=== PATIENT | female | born 1985 | race Caucasian/White ===

== ENCOUNTER 2017-10-26 18:57 | Emergency (ER) | payer SELFPAY ==
[2017-10-26] MEDS ORDERED: Ondansetron HCl/PF 4 MG/2 ML Vial ONE (19:21)
[2017-10-26 19:43] LABS: #Basophils 0.1 thou/uL (0.0-0.2); #Eosinphils 0.2 thou/uL (0.0-0.7); #Monocytes 0.6 thou/uL (0.11-0.59); #Neutrophils 4.9 thou/uL (1.40-6.50); %Basophils 1.3 % (0.0-1.0); %Eosinophils 2.1 % (0.0-10.0); %Lymphocytes 26.3 % (21.0-51.0); %Monocytes 7.8 % (0.0-10.0); %Neutrophils 62.5 % (42.0-75.0); Hemoglobin 14.4 g/dL (12.0-16.0); Mean Corpuscular Hemoglobin 28.5 pg (27.0-31.0); Mean Corpuscular Volume 83.7 fL (78.0-98.0); Mean Platelet Volume 6.8 fL (7.4-10.4); Platelet Count 324 thou/uL (130-400); RBC Distribution Width 11.6 % (11.5-14.5); Red Blood Cell (RBC) Count 5.07 mill/uL (4.20-5.40); White Blood Cell (WBC) Count 7.8 thou/uL (4.8-10.8)
[2017-10-26 19:58] LABS: ALT (SGPT) 12 U/L (8-55); AST (SGOT) 11 U/L (5-34); Albumin 4.2 g/dL (3.5-5.0); Alkaline Phosphatase 83 U/L (40-150); Anion Gap 14 mmol/L (10-20); BUN (Urea Nitrogen) 13 mg/dL (7.0-18.7); Bilirubin, Total 0.2 mg/dL (0.2-1.2); Calc. Creatinine Clearance 0 mL/min (70-130); Calcium 9.4 mg/dL (7.8-10.44); Carbon Dioxide 28 mmol/L (22-29); Chloride 102 mmol/L (98-107); Estimated GFR-MDRD 90; Glucose 96 mg/dL (70-105); Lipase 20 U/L (8-78); Potassium 4.1 mmol/L (3.5-5.1); Protein, Total 7.2 g/dL (6.0-8.3); Sodium 140 mmol/L (136-145)
[2017-10-26 20:30] LABS: Bilirubin Negative (Negative); Blood, Urine Negative (Negative); Clarity Slightly Cloudy (Clear); Glucose, Urine (Dipstick) Negative (Negative); Leukocyte Trace (Negative); Nitrite Negative (Negative); Protein, Urine (Dipstick) Trace mg/dL (Neg-Trace); Urobilinogen 0.2 mg/dL (0.2-1.0)
[2017-10-26 20:32] LABS: Pregnancy Test - Urine (BHCG) Negative (Negative); Pregu Control Background? CLEAR/WHITE (CLR/WHITE); Pregu Control Bar Appear? YES (CONTROL BAR)
[2017-10-26 20:33] LABS: Bacteria/HPF 2+ HPF (None Seen); WBC/HPF 0-3 HPF (0-3)
== END 2017-10-26 20:52 | disposition home or self-care (01) ==
LOC: SCSER 18:57
DX: R11.2 Nausea with vomiting, unspecified (principal); F17.210 Nicotine dependence, cigarettes, uncomplicated
CPT/HCPCS: 80053; 81003; 81015; 81025; 83690; 85025; 96361; 96374; J2405

== ENCOUNTER 2018-10-09 13:22 | Emergency (ER) | payer SELFPAY ==
[2018-10-09 13:48] LABS: #Basophils 0.1 thou/uL (0.0-0.2); #Eosinphils 0.3 thou/uL (0.0-0.7); #Lymphocytes 2.2 thou/uL (1.20-3.40); #Monocytes 0.6 thou/uL (0.11-0.59); #Neutrophils 5.7 thou/uL (1.40-6.50); %Basophils 0.6 % (0.0-1.0); %Eosinophils 3.7 % (0.0-10.0); %Lymphocytes 25.1 % (21.0-51.0); %Monocytes 6.6 % (0.0-10.0); Hemoglobin 14.6 g/dL (12.0-16.0); Mean Corpuscular HGB CONC 33.4 g/dL (32.0-36.0); Mean Corpuscular Hemoglobin 30.1 pg (27.0-31.0); Mean Corpuscular Volume 90.2 fL (78.0-98.0); Mean Platelet Volume 6.9 fL (7.4-10.4); Platelet Count 366 thou/uL (130-400); RBC Distribution Width 11.9 % (11.5-14.5); Red Blood Cell (RBC) Count 4.85 mill/uL (4.20-5.40); White Blood Cell (WBC) Count 8.9 thou/uL (4.8-10.8)
[2018-10-09 14:00] LABS: BHCG - Serum Negative (NEGATIVE); Pregs Control Background? CLEAR/WHITE (CLR/WHITE); Pregs Control Bar Appear? YES (CONTROL BAR)
[2018-10-09 14:11] LABS: Acetaminophen Less than 6.0 mcg/mL (10.0-30.0); Alcohol Less than 10 mg/dL (Less than 10); Salicylate Less than 8.0 mg/dL (15.0-30.0)
[2018-10-09 14:12] LABS: ALT (SGPT) 18 U/L (8-55); AST (SGOT) 17 U/L (5-34); Albumin 4.1 g/dL (3.5-5.0); Alkaline Phosphatase 92 U/L (40-150); Anion Gap 12 mmol/L (10-20); BUN (Urea Nitrogen) 13 mg/dL (7.0-18.7); Bilirubin, Total 0.3 mg/dL (0.2-1.2); Calc. Creatinine Clearance 0 mL/min (70-130); Calcium 9.4 mg/dL (7.8-10.44); Carbon Dioxide 25 mmol/L (22-29); Chloride 104 mmol/L (98-107); Estimated GFR-MDRD 82; Glucose 96 mg/dL (70-105); Protein, Total 7.1 g/dL (6.0-8.3); Sodium 137 mmol/L (136-145)
[2018-10-09 14:53] LABS: Bilirubin Negative (Negative); Blood, Urine Negative (Negative); Clarity Clear (Clear); Glucose, Urine (Dipstick) Normal (Negative); Leukocyte 75 Leu/uL (Negative); Nitrite Negative (Negative); Protein, Urine (Dipstick) Negative (Neg-Trace); RBC/HPF 0-3 HPF (0-3); Urobilinogen Normal mg/dL (Less than 2); WBC/HPF 0-3 HPF (0-3)
[2018-10-09 14:59] LABS: Bacteria/HPF Rare-Few HPF (None Seen)
[2018-10-09 15:03] LABS: Amphetamine Detected (NotDetected); Barbiturates Screen Not Detected (NotDetected); Benzodiazepine Screen Not Detected (NotDetected); Cocaine Metabolite Screen Not Detected (NotDetected); Medtox Control Line Valid? VALID (VALID); Medtox Reader # READER 4; Methadone Not Detected (NotDetected); Methamphetamine Detected (NotDetected); Opiate Screen Not Detected (NotDetected); Oxycodone Screen Not Detected (NotDetected); Phencyclidine (PCP) Not Detected (NotDetected); THC/Cannabinoid Screen Detected (NotDetected); Tricyclic Screen Not Detected (NotDetected)
== END 2018-10-09 16:59 | disposition home or self-care (01) ==
LOC: ERS 13:22
DX: F31.9 Bipolar disorder, unspecified (principal); F15.10 Other stimulant abuse, uncomplicated; F12.10 Cannabis abuse, uncomplicated; F17.210 Nicotine dependence, cigarettes, uncomplicated
CPT/HCPCS: 36415; 80053; 80306; 80307; 81003; 81015; 84443; 84703; 85025; 99284

== ENCOUNTER 2018-11-13 17:27 | Observation (INO) | payer SELFPAY ==
[2018-11-13 17:57] LABS: #Basophils 0.1 thou/uL (0.0-0.2); #Eosinphils 0.3 thou/uL (0.0-0.7); #Lymphocytes 2.5 thou/uL (1.20-3.40); #Monocytes 0.8 thou/uL (0.11-0.59); #Neutrophils 5.9 thou/uL (1.40-6.50); %Basophils 0.9 % (0.0-1.0); %Eosinophils 3.2 % (0.0-10.0); %Lymphocytes 25.9 % (21.0-51.0); %Monocytes 8.5 % (0.0-10.0); %Neutrophils 61.5 % (42.0-75.0); Hemoglobin 14.2 g/dL (12.0-16.0); Mean Corpuscular HGB CONC 32.8 g/dL (32.0-36.0); Mean Corpuscular Hemoglobin 29.3 pg (27.0-31.0); Mean Corpuscular Volume 89.2 fL (78.0-98.0); Mean Platelet Volume 6.9 fL (7.4-10.4); Platelet Count 422 thou/uL (130-400); RBC Distribution Width 11.9 % (11.5-14.5); Red Blood Cell (RBC) Count 4.85 mill/uL (4.20-5.40); White Blood Cell (WBC) Count 9.6 thou/uL (4.8-10.8)
[2018-11-13 18:06] LABS: Bilirubin Small (Negative); Blood, Urine Large (Negative); Clarity Clear (Clear); Glucose, Urine (Dipstick) Negative (Negative); Leukocyte Negative (Negative); Nitrite Negative (Negative); Protein, Urine (Dipstick) 100 mg/dL (Neg-Trace); Urobilinogen 0.2 mg/dL (Less than 2)
[2018-11-13 18:08] LABS: Pregnancy Test - Urine (BHCG) Negative (Negative); Pregu Control Background? CLEAR/WHITE (CLR/WHITE); Pregu Control Bar Appear? YES (CONTROL BAR); Specific Gravity 1.025 (1.002-1.036)
[2018-11-13 18:13] LABS: RBC/HPF 0-3 HPF (0-3); WBC/HPF 0-3 HPF (0-3)
[2018-11-13 18:14] LABS: Bacteria/HPF Rare-Few HPF (None Seen); Mucous/LPF Few LPF (<2+)
[2018-11-13 18:19] LABS: Amphetamine Detected (NotDetected); Barbiturates Screen Not Detected (NotDetected); Benzodiazepine Screen Not Detected (NotDetected); Cocaine Metabolite Screen Not Detected (NotDetected); Medtox Control Line Valid? VALID (VALID); Medtox Reader # READER 1; Methadone Not Detected (NotDetected); Methamphetamine Detected (NotDetected); Opiate Screen Not Detected (NotDetected); Oxycodone Screen Not Detected (NotDetected); Phencyclidine (PCP) Not Detected (NotDetected); THC/Cannabinoid Screen Detected (NotDetected); Tricyclic Screen Not Detected (NotDetected)
[2018-11-13 18:20] LABS: ALT (SGPT) 13 U/L (8-55); AST (SGOT) 18 U/L (5-34); Acetaminophen Less than 6.0 mcg/mL (10.0-30.0); Albumin 4.4 g/dL (3.5-5.0); Alcohol Less than 10 mg/dL (Less than 10); Alkaline Phosphatase 94 U/L (40-150); Anion Gap 15 mmol/L (10-20); BUN (Urea Nitrogen) 17 mg/dL (7.0-18.7); Bilirubin, Total 0.4 mg/dL (0.2-1.2); Calc. Creatinine Clearance 0 mL/min (70-130); Calcium 9.4 mg/dL (7.8-10.44); Carbon Dioxide 21 mmol/L (22-29); Chloride 107 mmol/L (98-107); Estimated GFR-MDRD 79; Globulin 2.9 g/dL (2.4-3.5); Glucose 79 mg/dL (70-105); Potassium 3.9 mmol/L (3.5-5.1); Protein, Total 7.3 g/dL (6.0-8.3); Salicylate Less than 8.0 mg/dL (15.0-30.0); Sodium 139 mmol/L (136-145)
[2018-11-13] MEDS ORDERED: Lorazepam 2 MG/ML VIAL ONE (19:48)
[2018-11-13] MEDS ORDERED: Acetaminophen 325 MG TAB PO PRN (21:18)
[2018-11-13] MEDS ORDERED: Acetaminophen 650 MG Suppository PR PRN (21:18)
[2018-11-13] MEDS ORDERED: Ondansetron ODT 4 MG TAB PO PRN (21:18)
[2018-11-13] MEDS ORDERED: Ondansetron PF 4 MG/2 ML Vial IVP PRN (21:18)
[2018-11-13] MEDS ORDERED: Sodium Chloride 0.9% 1,000 ML IV SCH (21:30)
[2018-11-14 00:47] LABS: Acetaminophen Less than 6.0 mcg/mL (10.0-30.0)
--- NOTE | 2018-11-14 04:13 | HP ---
PRIMARY CARE DOCTOR: The patient has no PCP. CODE STATUS: Full code. TIME OF EVALUATION: 8:30 p.m. CHIEF COMPLAINT: Overdose with tramadol. HISTORY OF PRESENT ILLNESS: A 32-year-old female patient, came to the hospital after having a drug overdose of tramadol around 4 p.m. The patient reported that she had some arguments and was having some headache and just took a hand full of pills, 15 pills totally of tramadol 50 mg each and took them. The patient has a long history of drug abuse. The patient had methamphetamines. She reportedly was not willing to kill herself, but just to get relief of her pain. REVIEW OF SYSTEMS: All other systems were reviewed and negative except for the findings mentioned above. PAST MEDICAL HISTORY: No significant medical history. PAST SURGICAL HISTORY: No surgical history. FAMILY HISTORY: Reviewed and non contributory for current presentations PSYCHIATRIC HISTORY: The patient has anxiety, bipolar disorder, depression. SOCIAL HISTORY: No alcohol, no drugs. The patient abused marijuana, methamphetamines. Smoke cigarettes 1 pack per day. KNOWN ALLERGIES: No known drug allergies except for red dye. REPORTED MEDICATIONS: None. PHYSICAL EXAMINATION: VITAL SIGNS: On presentation, blood pressure 115/88 with heart rate 91, respiratory rate was 16, pain was 0/10, oxygen saturation was 96% on room air. GENERAL APPEARANCE: The patient is alert, oriented, in no acute distress. HEENT : Eyes, normal conjunctivae. Moist oral mucosa. Anicteric. No JVD. RESPIRATORY: Bilateral air entry. No rales. No wheezes. Symmetric expansion. CARDIOVASCULAR: Normal rate. Regular rhythm. No murmurs. No gallop. No edema. ABDOMEN: Soft. Normal bowel sounds. MUSCULOSKELETAL: Baseline range of motion and strength. SKIN: Warm, intact. No pallor. No rash. No redness. Capillary refill seems to be intact. NEUROLOGIC: No evidence of any new focal weakness. Cranial nerves seems to be intact. PSYCHIATRIC: The patient is in good mood. No anxiety. The patient has no suicidal ideation by the time of my examination. DIAGNOSTIC STUDIES: EKG was reviewed. The patient has normal sinus rhythm with sinus arrhythmia at the rate of 71, AR 140, QRS 72, QT corrected 121. LABORATORY DATA: Labs were reviewed. The patient has white count 9.6, hemoglobin 14.2, MCV 89.2, platelet count 422. Chemistry; sodium 139, potassium 3.9, chloride 107, carbon dioxide 21, anion gap 15, BUN 17, creatinine 0.85, GFR 79, glucose 79, calcium 9.4, magnesium 2.0. LFTs were negative. Urine was done, it was negative. The urine drug screen showed acetaminophen of 6, amphetamines detected, methamphetamine detected, cannabinoids detected. ASSESSMENT AND PLAN: The patient will be placed in the hospital with following medical problems: 1. Overdose with tramadol. We will monitor patient. She seems to be stable at this point. We will give hydration. 2. History of drug abuse. The patient advised not to use drugs. 3. Deep venous thrombosis prophylaxis. 4. The patient is not suicidal during my examination. Job ID: [id number] [facility]
[2018-11-14 04:42] LABS: #Basophils 0.1 thou/uL (0.0-0.2); #Eosinphils 0.3 thou/uL (0.0-0.7); #Lymphocytes 2.6 thou/uL (1.20-3.40); #Monocytes 0.5 thou/uL (0.11-0.59); #Neutrophils 2.9 thou/uL (1.40-6.50); %Basophils 0.9 % (0.0-1.0); %Eosinophils 4.6 % (0.0-10.0); %Lymphocytes 40.7 % (21.0-51.0); %Monocytes 7.7 % (0.0-10.0); Hemoglobin 12.8 g/dL (12.0-16.0); Mean Corpuscular HGB CONC 33.4 g/dL (32.0-36.0); Mean Corpuscular Hemoglobin 30.1 pg (27.0-31.0); Mean Corpuscular Volume 90.2 fL (78.0-98.0); Mean Platelet Volume 4.9 fL (7.4-10.4); Platelet Count 307 thou/uL (130-400); RBC Distribution Width 11.8 % (11.5-14.5); Red Blood Cell (RBC) Count 4.26 mill/uL (4.20-5.40); White Blood Cell (WBC) Count 6.3 thou/uL (4.8-10.8)
[2018-11-14 05:02] LABS: Anion Gap 10 mmol/L (10-20); BUN (Urea Nitrogen) 13 mg/dL (7.0-18.7); Calc. Creatinine Clearance 0 mL/min (70-130); Calcium 8.4 mg/dL (7.8-10.44); Carbon Dioxide 23 mmol/L (22-29); Chloride 109 mmol/L (98-107); Estimated GFR-MDRD Greater than 90; Glucose 82 mg/dL (70-105); Potassium 3.9 mmol/L (3.5-5.1); Sodium 138 mmol/L (136-145)
[2018-11-14] MEDS ORDERED: Enoxaparin Sodium 40 MG/0.4 ML SYRINGE SC SCH (09:00)
[2018-11-14 09:21] VITALS: BMI 26.6
--- NOTE | 2018-11-15 03:45 | DIS ---
DATE OF ADMISSION: 11/13/2018 DATE OF DISCHARGE: 11/14/2018 PRIMARY CARE PROVIDER: None. DISCHARGE DIAGNOSIS: Overdose with tramadol. CONDITION OF PATIENT ON THE DAY OF DISCHARGE: Stable. I assessed Ms. León on the day of discharge. She denies any chest pain or shortness of breath. Vital signs are stable. S1 and S2 are heard, regular. Lungs are clear to auscultation bilaterally. FOLLOWUP APPOINTMENTS: The patient is advised to follow up with primary care provider in 10 days time. HOSPITAL COURSE: Ms. León is a pleasant 32-year-old lady, who was admitted to [facility] on November 13, 2018, for overdose with tramadol. Please refer to Dr. Melchor's history and physical note dated November 14, 2018, for further details. She was observed for signs of tramadol toxicity. She has been medically cleared for discharge. She has been evaluated by [facility] and has been recommended inpatient admission to a psychiatric facility for possible suicidal ideation and depression. She is being discharged to [facility] when bed is available. DISCHARGE DESTINATION: [facility]. Job ID: [id number]
--- NOTE | 2018-11-19 15:35 | EKG ---
Test Reason : Blood Pressure : / mmHG Vent. Rate : 066 BPM Atrial Rate : 066 BPM P-R Int : 152 ms QRS Dur : 070 ms QT Int : 406 ms P-R-T Axes : 048 054 053 degrees QTc Int : 425 ms Normal sinus rhythm Normal ECG Confirmed by PEGGY LUDWIG ([id number]), ms sql server developer CHRISTINA IRVIN ([id number]) on 11/19/2018 3:35:34 PM Referred By: Confirmed By:PEGGY LUDWIG
--- NOTE | 2018-11-19 15:56 | EKG ---
Test Reason : Blood Pressure : / mmHG Vent. Rate : 071 BPM Atrial Rate : 071 BPM P-R Int : 140 ms QRS Dur : 072 ms QT Int : 388 ms P-R-T Axes : 048 058 049 degrees QTc Int : 421 ms Normal sinus rhythm with sinus arrhythmia Normal ECG Confirmed by KAN PEREZ ([id number]), editor continuity and script CHRISTINA IRVIN ([id number]) on 11/19/2018 3:55:54 PM Referred By: Confirmed By:KAN PEREZ
== END 2018-11-14 13:41 ==
LOC: ERS 17:27 → ERHOLD 20:50
PROVIDERS: ADMIT Hospitalist; ATTEND Hospitalist
DX: T40.4X1A Poisoning by other synthetic narcotics, accidental (unintentional), initial encounter (principal); F31.9 Bipolar disorder, unspecified; F41.9 Anxiety disorder, unspecified; F17.210 Nicotine dependence, cigarettes, uncomplicated; F12.11 Cannabis abuse, in remission; F15.11 Other stimulant abuse, in remission; Z91.02 Food additives allergy status
CPT/HCPCS: 36415; 80048; 80053; 80306; 80307; 81003; 81015; 81025; 83735; 84443; 85025; 93005; 96361; 96374; J2060

== ENCOUNTER 2020-03-10 03:21 | Emergency (ER) | payer SELFPAY ==
[2020-03-10 08:22] LABS: SARS-CoV-2 MS2 Positive; SARS-CoV-2 N Gene Negative; SARS-CoV-2 S Gene Negative; SARS-CoV-2 by NAA Not Detected (NotDetected); SARS-CoV-2 orf1ab Negative
== END 2020-03-10 03:55 | disposition home or self-care (01) ==
LOC: ERS 03:21
DX: J02.9 Acute pharyngitis, unspecified (principal); R05 Cough; Z20.822 Contact with and (suspected) exposure to COVID-19; F17.210 Nicotine dependence, cigarettes, uncomplicated
CPT/HCPCS: 87635; 99283; U0003

== ENCOUNTER 2020-10-22 03:02 | Inpatient (IN) | payer MEDICAID, OTHER, SELFPAY ==
[2020-10-22] MEDS ORDERED: Fentanyl 100 MCG/2 ML VIAL ONE ×3 (03:12→16:03)
[2020-10-22 03:41] LABS: #Basophils 0.1 thou/uL (0.0-0.2); #Eosinphils 0.1 thou/uL (0.0-0.7); #Lymphocytes 2.6 thou/uL (1.20-3.40); #Monocytes 0.9 thou/uL (0.11-0.59); #Neutrophils 13.4 thou/uL (1.40-6.50); %Basophils 0.4 % (0.0-1.0); %Eosinophils 0.8 % (0.0-10.0); %Lymphocytes 15.1 % (21.0-51.0); %Monocytes 5.3 % (0.0-10.0); %Neutrophils 78.5 % (42.0-75.0); Hemoglobin 12.9 g/dL (12.0-16.0); Mean Corpuscular HGB CONC 34.3 g/dL (32.0-36.0); Mean Corpuscular Hemoglobin 29.6 pg (27.0-31.0); Mean Corpuscular Volume 86.4 fL (78.0-98.0); Mean Platelet Volume 6.8 fL (7.4-10.4); Platelet Count 473 thou/uL (130-400); RBC Distribution Width 12.3 % (11.5-14.5); Red Blood Cell (RBC) Count 4.35 mill/uL (4.20-5.40); White Blood Cell (WBC) Count 17.1 thou/uL (4.8-10.8)
[2020-10-22 03:48] LABS: BHCG - Serum Negative (NEGATIVE); Pregs Control Background? CLEAR/WHITE (CLR/WHITE); Pregs Control Bar Appear? YES (CONTROL BAR)
[2020-10-22] MEDS ORDERED: Morphine 4 MG/ML VIAL ONE ×2 (03:49→04:40)
[2020-10-22] MEDS ORDERED: Ondansetron PF 4 MG/2 ML Vial ONE ×3 (03:49→15:50)
[2020-10-22] MEDS ORDERED: PROPOFOL 20 ML ONE (03:59)
[2020-10-22 04:01] LABS: Acetaminophen Less than 6.0 mcg/mL (10.0-30.0); Alcohol Less than 10 mg/dL (Less than 10); Salicylate Less than 8.0 mg/dL (15.0-30.0)
[2020-10-22 04:02] LABS: ALT (SGPT) 18 U/L (8-55); AST (SGOT) 26 U/L (5-34); Alkaline Phosphatase 93 U/L (40-110); Anion Gap 14 mmol/L (10-20); BUN (Urea Nitrogen) 18 mg/dL (7.0-18.7); Bilirubin, Total 0.2 mg/dL (0.2-1.2); Calc. Creatinine Clearance 0 mL/min (70-130); Calcium 8.6 mg/dL (7.8-10.44); Carbon Dioxide 19 mmol/L (22-29); Chloride 107 mmol/L (98-107); Globulin 3.2 g/dL (2.4-3.5); Glucose 147 mg/dL (70-105); Potassium 3.9 mmol/L (3.5-5.1); Protein, Total 7.2 g/dL (6.0-8.3); Sodium 136 mmol/L (136-145)
[2020-10-22] MEDS ORDERED: Morphine 2 MG/ML VIAL ONE ×2 (05:29→09:51)
[2020-10-22] MEDS ORDERED: Ketorolac Tromethamine 30 MG/ML VIAL ONE ×2 (05:29→15:50)
[2020-10-22] MEDS ORDERED: Boostrix 0.5 ML (Tdap) VIAL ONE (05:34)
[2020-10-22] MEDS ORDERED: Dextrose 5% in Water 1,000 ML IV PRN (06:06)
[2020-10-22] MEDS ORDERED: Dextrose 50% Abboject 50 ML SYRINGE SLOW IVP PRN (06:06)
[2020-10-22] MEDS ORDERED: Ondansetron PF 4 MG/2 ML Vial IVP PRN (06:06)
[2020-10-22] MEDS ORDERED: hydrALAZINE 20 MG/ML VIAL SLOW IVP PRN (06:06)
[2020-10-22] MEDS ORDERED: Cyclobenzaprine 10 MG TAB PO PRN (06:11)
[2020-10-22] MEDS ORDERED: traMADol HCl 50 MG TAB PO PRN (06:11)
[2020-10-22] MEDS ORDERED: Sodium Chloride 0.9% 1,000 ML IV SCH (06:15)
[2020-10-22] MEDS ORDERED: Iopamidol-370 76% 500 ML 1 ML ONE (09:12)
[2020-10-22 09:35] LABS: SARS-CoV-2 NAA Rapid Test DETECTED (NotDetected)
[2020-10-22] MEDS ORDERED: CEFAZOLIN 2 GM in Premix Bag 1 BAG IVPB SCH (11:00)
[2020-10-22] MEDS ORDERED: Fentanyl 250 MCG/5 ML VIAL ONE (12:44)
[2020-10-22] MEDS ORDERED: PROPOFOL 200 MG/20 ML VIAL ONE (13:31)
[2020-10-22] MEDS ORDERED: Dexamethasone 20 MG/5 ML VIAL ONE (13:31)
[2020-10-22] MEDS ORDERED: Lidocaine 1% PF 5 ML VIAL ONE (13:31)
[2020-10-22] MEDS ORDERED: Ondansetron HCl/PF 4 MG/2 ML Vial IVP PRN (15:46)
[2020-10-22] MEDS ORDERED: Promethazine HCl 25 MG/ML VIAL IM PRN (15:46)
[2020-10-22] MEDS ORDERED: Promethazine HCl 25 MG/ML VIAL IVPB PRN (15:46)
[2020-10-22] MEDS ORDERED: Meperidine HCl/PF 25 MG/ML VIAL SLOW IVP PRN ×2 (15:46)
[2020-10-22] MEDS ORDERED: HYDROmorphone 2 MG/ML VIAL SLOW IVP PRN (15:46)
[2020-10-22] MEDS ORDERED: Ketorolac Tromethamine 30 MG/ML VIAL IVP PRN (15:46)
[2020-10-22] MEDS ORDERED: Morphine Sulfate 2 MG/ML SYRINGE SLOW IVP PRN (15:46)
[2020-10-22] MEDS ORDERED: Meperidine HCl/PF 25 MG/ML VIAL ONE (15:50)
[2020-10-22] MEDS ORDERED: HYDROmorphone 2 MG/ML VIAL ONE (16:03)
[2020-10-22] MEDS: traMADol HCl 50 MG TAB PO SCH ×3 (18:56→22:19)
[2020-10-22] MEDS: Acetaminophen 500 MG TAB PO SCH ×3 (18:56→22:19)
[2020-10-22] MEDS: Famotidine 20 MG TAB PO SCH ×2 (18:57→19:49)
[2020-10-22] MEDS: Bacitracin 1 PK TOP SCH ×2 (18:57→19:49)
[2020-10-22] MEDS: Nicotine 14 MG PATCH TD SCH (18:57)
[2020-10-22] MEDS: Polyethylene Glycol 3350 17 GM Packet PO SCH (18:57)
[2020-10-22] MEDS: Ketorolac Tromethamine 30 MG/ML VIAL IVP SCH ×3 (18:57→22:18)
[2020-10-22] MEDS: Senokot S 8.6-50 MG TAB PO SCH ×2 (18:57→19:49)
[2020-10-22] MEDS: Ferrous Sulfate 325 MG TAB PO SCH (18:58)
[2020-10-22] MEDS: Morphine 2 MG/ML VIAL SLOW IVP PRN (21:00)
[2020-10-22] MEDS: CEFAZOLIN 2 GM in Premix Bag 1 BAG IVPB SCH (21:39)
[2020-10-22 21:52] VITALS: BMI 24.8
[2020-10-23] MEDS: Morphine 2 MG/ML VIAL SLOW IVP PRN ×2 (00:55→08:25)
[2020-10-23] MEDS: Acetaminophen 500 MG TAB PO SCH ×4 (04:27→23:08)
[2020-10-23] MEDS: traMADol HCl 50 MG TAB PO SCH ×4 (04:28→23:09)
[2020-10-23] MEDS: CEFAZOLIN 2 GM in Premix Bag 1 BAG IVPB SCH ×3 (04:55→23:05)
[2020-10-23] MEDS: Ketorolac Tromethamine 30 MG/ML VIAL IVP SCH ×4 (04:55→23:06)
[2020-10-23] MEDS: Ferrous Sulfate 325 MG TAB PO SCH ×3 (08:22→20:50)
[2020-10-23] MEDS: Ascorbic Acid 500 mg Chewable Tablet PO SCH ×2 (08:24→20:50)
[2020-10-23] MEDS: Enoxaparin Sodium 40 MG/0.4 ML SYRINGE SC SCH (08:24)
[2020-10-23] MEDS: Famotidine 20 MG TAB PO SCH ×2 (08:24→20:50)
[2020-10-23] MEDS: Polyethylene Glycol 3350 17 GM Packet PO SCH (08:24)
[2020-10-23] MEDS: Prenatal Vitamin 1 TAB PO SCH (08:24)
[2020-10-23] MEDS: Senokot S 8.6-50 MG TAB PO SCH ×2 (08:24→20:49)
[2020-10-23] MEDS: Bacitracin 1 PK TOP SCH ×3 (08:25→20:49)
[2020-10-23] MEDS: Nicotine 14 MG PATCH TD SCH (11:40)
[2020-10-24] MEDS: Ketorolac Tromethamine 30 MG/ML VIAL IVP SCH ×2 (05:27→11:57)
[2020-10-24] MEDS: Acetaminophen 500 MG TAB PO SCH ×2 (05:28→12:25)
[2020-10-24] MEDS: traMADol HCl 50 MG TAB PO SCH ×2 (05:28→11:58)
[2020-10-24] MEDS: Polyethylene Glycol 3350 17 GM Packet PO SCH (08:23)
[2020-10-24] MEDS: Prenatal Vitamin 1 TAB PO SCH (08:23)
[2020-10-24] MEDS: Bacitracin 1 PK TOP SCH (08:23)
[2020-10-24] MEDS: Famotidine 20 MG TAB PO SCH (08:23)
[2020-10-24] MEDS: Ascorbic Acid 500 mg Chewable Tablet PO SCH (08:23)
[2020-10-24] MEDS: Ferrous Sulfate 325 MG TAB PO SCH (08:23)
[2020-10-24] MEDS: Senokot S 8.6-50 MG TAB PO SCH (08:23)
[2020-10-24] MEDS: Enoxaparin Sodium 40 MG/0.4 ML SYRINGE SC SCH (08:23)
[2020-10-24] MEDS: Nicotine 14 MG PATCH TD SCH (08:38)
[2020-10-24 11:58] VITALS: BP 105/71; TEMP 98.2
== END 2020-10-24 13:50 | disposition home or self-care (01) | DRG 492 ==
LOC: ERS 03:02 → ERHOLD 04:04 → SURG A 11:28 → T4-A 18:18
PROVIDERS: ADMIT Surgery; ATTEND Surgery
PROC: 0QSG04Z Reposition Right Tibia with Internal Fixation Device, Open Approach (ICD-10-PCS; principal; 2020-10-22)
DX: S82.851B Displaced trimalleolar fracture of right lower leg, initial encounter for open fracture type I or II (principal); U07.1 COVID-19; S40.811A Abrasion of right upper arm, initial encounter; V89.2XXA Person injured in unspecified motor-vehicle accident, traffic, initial encounter; Y92.89 Other specified places as the place of occurrence of the external cause
CPT/HCPCS: 27818; 36416; 70450; 71045; 71260; 72125; 74177; 76000; 80053; 80307; 84703; 85025; 86850; 86900; 86901; 90471; 90715; 96374; 96375; 96376; 99152; C1713; G0390; J0690; J1100; J1170; J1650; J1885; J2175; J2270; J2405; J2704; J3010; Q9967; U0002; U0005

== ENCOUNTER 2020-11-19 18:01 | Emergency (ER) | payer SELFPAY ==
[2020-11-19] MEDS ORDERED: HYDROcodone/Acetaminophen 10/325 mg Tablet ONE (19:54)
== END 2020-11-19 22:40 | disposition home or self-care (01) ==
LOC: ERS 18:01
DX: S92.321A Displaced fracture of second metatarsal bone, right foot, initial encounter for closed fracture (principal); S92.331A Displaced fracture of third metatarsal bone, right foot, initial encounter for closed fracture; S92.341A Displaced fracture of fourth metatarsal bone, right foot, initial encounter for closed fracture; F17.200 Nicotine dependence, unspecified, uncomplicated; X58.XXXA Exposure to other specified factors, initial encounter
CPT/HCPCS: 29515

== ENCOUNTER 2020-11-26 10:51 | Outpatient (CLI) | payer SELFPAY ==
[2020-11-26 23:09] LABS: SARS-CoV-2 PCR by NAA Not Detected (NotDetected)
== END 2020-11-26 10:52 | disposition home or self-care (01) ==
LOC: LABBT 10:51
PROVIDERS: ATTEND Orthopaedic Surgery
DX: Z01.812 Encounter for preprocedural laboratory examination (principal); S93.431A Sprain of tibiofibular ligament of right ankle, initial encounter; S92.901A Unspecified fracture of right foot, initial encounter for closed fracture; Z20.822 Contact with and (suspected) exposure to COVID-19
CPT/HCPCS: U0003; U0005

== ENCOUNTER 2020-11-29 06:10 | Day surgery (SDC) | payer OTHER, SELFPAY ==
[2020-11-27 11:12] VITALS: BMI 31.3
[2020-11-29] MEDS ORDERED: Levofloxacin 500 mg/D5W 100 ml Premix Bag ONE (06:33)
[2020-11-29] MEDS ORDERED: Clindamycin/D5W 900 mg/50 ml Premix Bag ONE (06:33)
[2020-11-29] MEDS ORDERED: Fentanyl 100 MCG/2 ML VIAL ONE ×3 (07:00→09:38)
[2020-11-29] MEDS ORDERED: Midazolam HCl 2 mg/2 ml Vial ONE (07:00)
[2020-11-29] MEDS ORDERED: Famotidine/PF 20 mg/2ml Vial ONE (07:01)
[2020-11-29] MEDS ORDERED: Lidocaine 1% (PF) 30 ML VIAL ONE (07:01)
[2020-11-29] MEDS ORDERED: Lidocaine 1% PF 5 ML VIAL ONE (07:48)
[2020-11-29] MEDS ORDERED: Bupivacaine PF 0.5% 30 ML VIAL ONE (07:48)
[2020-11-29] MEDS ORDERED: Ropivacaine 0.5% HCl/PF (150 MG/30 ML VIAL) ONE (07:48)
[2020-11-29] MEDS ORDERED: Glycopyrrolate 0.2 MG/ML 5 ML SYRINGE ONE (07:48)
[2020-11-29] MEDS ORDERED: Dexamethasone 20 MG/5 ML VIAL ONE (07:48)
[2020-11-29] MEDS ORDERED: Ondansetron PF 4 MG/2 ML Vial ONE (07:48)
[2020-11-29] MEDS ORDERED: PROPOFOL 200 MG/20 ML VIAL ONE (07:48)
[2020-11-29] MEDS ORDERED: Rocuronium Bromide 10 MG/ML (10ML VIAL) ONE (07:48)
[2020-11-29] MEDS ORDERED: Fentanyl 100 MCG/2 ML VIAL SLOW IVP PRN (08:06)
[2020-11-29] MEDS ORDERED: Promethazine HCl 25 MG/ML VIAL IM PRN (08:15)
[2020-11-29] MEDS ORDERED: Ondansetron PF 4 MG/2 ML Vial IVP PRN (08:15)
[2020-11-29] MEDS ORDERED: HYDROcodone/Acetaminophen 10/325 mg Tablet PO PRN ×2 (08:15)
[2020-11-29] MEDS ORDERED: Zolpidem Tartrate 5 MG TAB PO PRN (08:15)
[2020-11-29] MEDS ORDERED: traMADol HCl 50 MG TAB PO PRN ×2 (08:15)
[2020-11-29] MEDS ORDERED: Ropivacaine 0.2% 550 ML 550 ML NERVE BLCK SCH (08:15)
[2020-11-29] MEDS ORDERED: Promethazine HCl 25 MG/ML VIAL ONE (11:00)
== END 2020-11-29 13:53 | disposition home or self-care (01) ==
LOC: SDC 06:10
PROVIDERS: ATTEND Orthopaedic Surgery
PROC: 0QSP04Z Reposition Left Metatarsal with Internal Fixation Device, Open Approach (ICD-10-PCS; principal; 2020-11-29)
PROC: 0SSF04Z Reposition Right Ankle Joint with Internal Fixation Device, Open Approach (ICD-10-PCS; 2020-11-29)
DX: S93.324A Dislocation of tarsometatarsal joint of right foot, initial encounter (principal); S93.431A Sprain of tibiofibular ligament of right ankle, initial encounter; Z88.1 Allergy status to other antibiotic agents; Z88.8 Allergy status to other drugs, medicaments and biological substances; W18.30XA Fall on same level, unspecified, initial encounter
CPT/HCPCS: 76000; A4306; C1713; J1956; J2001; J2250; J2550; J2795; J3010; J3490; S0028

== ENCOUNTER 2020-12-06 09:25 | Inpatient (IN) | payer SELFPAY ==
[2020-12-06] MEDS ORDERED: Piperacillin/Tazobactam 3.375 GM VIAL ONE (09:56)
[2020-12-06] MEDS ORDERED: Sodium Chloride 0.9% 100 ML ONE (09:57)
[2020-12-06 10:30] LABS: #Eosinphils 0.3 thou/uL (0.0-0.7); #Lymphocytes 1.1 thou/uL (1.20-3.40); #Neutrophils 9.4 thou/uL (1.40-6.50); %Basophils 0.3 % (0.0-1.0); %Eosinophils 2.4 % (0.0-10.0); %Lymphocytes 9.6 % (21.0-51.0); %Monocytes 8.5 % (0.0-10.0); %Neutrophils 79.3 % (42.0-75.0); Hemoglobin 10.5 g/dL (12.0-16.0); Mean Corpuscular HGB CONC 31.7 g/dL (32.0-36.0); Mean Corpuscular Hemoglobin 27.2 pg (27.0-31.0); Mean Corpuscular Volume 85.6 fL (78.0-98.0); Mean Platelet Volume 7.8 fL (7.4-10.4); Platelet Count 351 thou/uL (130-400); RBC Distribution Width 13.6 % (11.5-14.5); Red Blood Cell (RBC) Count 3.85 mill/uL (4.20-5.40); White Blood Cell (WBC) Count 11.8 thou/uL (4.8-10.8)
[2020-12-06 10:31] LABS: BHCG - Serum Negative (NEGATIVE); Pregs Control Background? CLEAR/WHITE (CLR/WHITE); Pregs Control Bar Appear? YES (CONTROL BAR)
[2020-12-06] MEDS ORDERED: Heparin 1,000 UNITS/ML VIAL ONE (10:44)
[2020-12-06 10:58] LABS: ALT (SGPT) 10 U/L (8-55); AST (SGOT) 10 U/L (5-34); Albumin 3.1 g/dL (3.5-5.0); Alkaline Phosphatase 104 U/L (40-110); Anion Gap 13 mmol/L (10-20); BUN (Urea Nitrogen) 8 mg/dL (7.0-18.7); Bilirubin, Total 0.2 mg/dL (0.2-1.2); Calc. Creatinine Clearance 0 mL/min (70-130); Calcium 8.3 mg/dL (7.8-10.44); Carbon Dioxide 23 mmol/L (22-29); Chloride 108 mmol/L (98-107); Globulin 2.8 g/dL (2.4-3.5); Glucose 90 mg/dL (70-105); Potassium 4.1 mmol/L (3.5-5.1); Protein, Total 5.9 g/dL (6.0-8.3); Sodium 140 mmol/L (136-145)
[2020-12-06] MEDS ORDERED: traMADol HCl 50 MG TAB PO PRN (11:06)
[2020-12-06] MEDS ORDERED: Morphine 4 MG/ML VIAL ONE (11:06)
[2020-12-06] MEDS ORDERED: Communication Order-Pharmacy FS SCH (11:15)
[2020-12-06] MEDS ORDERED: Piperacillin/Tazobactam 3.375 GM in Sodium Chloride 0.9% 100 ML IVPB SCH (11:15)
[2020-12-06] MEDS ORDERED: Vancomycin 1 GM/200 ML BAG ONE (11:50)
[2020-12-06 13:43] VITALS: BMI 31.3
[2020-12-06] MEDS: Nicotine 21 MG PATCH TD SCH (14:57)
[2020-12-06] MEDS ORDERED: Vancomycin 1 GM in Premix Bag 1 BAG IVPB SCH (15:15)
[2020-12-06] MEDS ORDERED: [UNRECOGNIZED DRUG - OTHER] IVPB PRN (15:16)
[2020-12-06] MEDS: traMADol HCl 50 MG TAB PO PRN ×2 (15:43→22:17)
[2020-12-06] MEDS: Piperacillin/Tazobactam 3.375 GM in Sodium Chloride 0.9% 100 ML IVPB SCH ×3 (15:46→23:36)
[2020-12-06] MEDS: Fentanyl 100 MCG/2 ML VIAL SLOW IVP PRN (18:24)
[2020-12-06] MEDS: Famotidine 20 MG TAB PO SCH (20:00)
[2020-12-06] MEDS: Ondansetron PF 4 MG/2 ML Vial IVP PRN (20:00)
[2020-12-06] MEDS ORDERED: Calcium Carbonate 500 MG ChewTAB PO PRN (21:49)
[2020-12-06] MEDS: Acetaminophen 500 MG TAB PO PRN (22:15)
[2020-12-06] MEDS: Vancomycin 1 GM in Premix Bag 1 BAG IVPB SCH (23:36)
[2020-12-07 00:54] LABS: SARS-CoV-2 PCR by NAA Not Detected (NotDetected)
[2020-12-07] MEDS: Piperacillin/Tazobactam 3.375 GM in Sodium Chloride 0.9% 100 ML IVPB SCH ×4 (03:15→23:05)
[2020-12-07 07:53] LABS: #Eosinphils 0.4 thou/uL (0.0-0.7); #Lymphocytes 1.6 thou/uL (1.20-3.40); #Monocytes 0.8 thou/uL (0.11-0.59); #Neutrophils 6.5 thou/uL (1.40-6.50); %Basophils 0.3 % (0.0-1.0); %Lymphocytes 17.1 % (21.0-51.0); %Monocytes 8.8 % (0.0-10.0); %Neutrophils 69.9 % (42.0-75.0); Hemoglobin 9.7 g/dL (12.0-16.0); Mean Corpuscular Hemoglobin 28.5 pg (27.0-31.0); Mean Corpuscular Volume 86.2 fL (78.0-98.0); Mean Platelet Volume 7.5 fL (7.4-10.4); Platelet Count 451 thou/uL (130-400); RBC Distribution Width 13.6 % (11.5-14.5); Red Blood Cell (RBC) Count 3.39 mill/uL (4.20-5.40); White Blood Cell (WBC) Count 9.4 thou/uL (4.8-10.8)
[2020-12-07] MEDS: Famotidine 20 MG TAB PO SCH ×2 (08:11→20:23)
[2020-12-07] MEDS: Vancomycin 1 GM in Premix Bag 1 BAG IVPB SCH ×2 (08:11→18:39)
[2020-12-07 08:15] LABS: ALT (SGPT) 7 U/L (8-55); AST (SGOT) 9 U/L (5-34); Albumin 3.1 g/dL (3.5-5.0); Alkaline Phosphatase 104 U/L (40-110); Anion Gap 12 mmol/L (10-20); BUN (Urea Nitrogen) 4 mg/dL (7.0-18.7); Bilirubin, Total 0.2 mg/dL (0.2-1.2); Calc. Creatinine Clearance 153 mL/min (70-130); Calcium 8.8 mg/dL (7.8-10.44); Carbon Dioxide 28 mmol/L (22-29); Chloride 104 mmol/L (98-107); Globulin 2.7 g/dL (2.4-3.5); Glucose 93 mg/dL (70-105); Potassium 3.8 mmol/L (3.5-5.1); Protein, Total 5.8 g/dL (6.0-8.3); Sodium 140 mmol/L (136-145)
[2020-12-07] MEDS ORDERED: FLU VACC QS2021-22(6MOS UP)/PF 60 MCG/0.5 ML SYRINGE IM ONE (09:00)
[2020-12-07] MEDS ORDERED: TETANUS AND DIPHTHERIA TOX/PF 0.5 ML DISP.SYRIN IM SCH (09:00)
[2020-12-07] MEDS: traMADol HCl 50 MG TAB PO PRN ×2 (14:22→20:27)
[2020-12-07] MEDS: Nicotine 21 MG PATCH TD SCH (16:11)
[2020-12-07] MEDS: Acetaminophen 500 MG TAB PO PRN (20:23)
[2020-12-08] MEDS: Ondansetron PF 4 MG/2 ML Vial IVP PRN ×2 (02:05→09:03)
[2020-12-08] MEDS: Vancomycin 1 GM in Premix Bag 1 BAG IVPB SCH ×3 (03:18→18:45)
[2020-12-08] MEDS: Piperacillin/Tazobactam 3.375 GM in Sodium Chloride 0.9% 100 ML IVPB SCH ×3 (06:06→22:25)
[2020-12-08] MEDS: Senokot S 8.6-50 MG TAB PO SCH ×2 (09:02→20:21)
[2020-12-08] MEDS: Famotidine 20 MG TAB PO SCH (09:02)
[2020-12-08] MEDS: Polyethylene Glycol 3350 17 GM Packet PO SCH (09:03)
[2020-12-08] MEDS: traMADol HCl 50 MG TAB PO PRN (09:03)
[2020-12-08] MEDS: Nicotine 21 MG PATCH TD SCH (09:03)
[2020-12-08] MEDS: Fentanyl 100 MCG/2 ML VIAL SLOW IVP PRN ×2 (16:23→19:33)
[2020-12-08] MEDS ORDERED: Promethazine HCl 12.5 MG in Sodium Chloride 0.9% 50 ML IVPB PRN (17:36)
[2020-12-08] MEDS ORDERED: Promethazine HCl 12.5 MG in Sodium Chloride 0.9% 50 ML IVPB SCH (17:45)
[2020-12-08] MEDS: Saccharomyces boulardii 250 MG CAP PO SCH (20:21)
[2020-12-08] MEDS: Pantoprazole 40 MG VIAL IVP SCH (20:22)
[2020-12-09] MEDS: Vancomycin 1 GM in Premix Bag 1 BAG IVPB SCH ×4 (02:23→23:19)
[2020-12-09] MEDS: Piperacillin/Tazobactam 3.375 GM in Sodium Chloride 0.9% 100 ML IVPB SCH ×2 (06:22→15:49)
[2020-12-09] MEDS: Fentanyl 100 MCG/2 ML VIAL SLOW IVP PRN ×6 (06:38→23:20)
[2020-12-09] MEDS: Ondansetron PF 4 MG/2 ML Vial IVP PRN ×3 (07:21→18:39)
[2020-12-09] MEDS: Senokot S 8.6-50 MG TAB PO SCH ×2 (10:40→23:18)
[2020-12-09] MEDS: Saccharomyces boulardii 250 MG CAP PO SCH ×2 (10:40→19:55)
[2020-12-09] MEDS: Nicotine 21 MG PATCH TD SCH (10:40)
[2020-12-09] MEDS: Pantoprazole 40 MG VIAL IVP SCH ×2 (10:40→19:58)
[2020-12-09] MEDS: Polyethylene Glycol 3350 17 GM Packet PO SCH (10:41)
[2020-12-09] MEDS: Metoclopramide HCl 10 MG/2 ML VIAL IVP SCH (23:31)
[2020-12-10] MEDS: Piperacillin/Tazobactam 3.375 GM in Sodium Chloride 0.9% 100 ML IVPB SCH ×4 (00:26→23:55)
[2020-12-10] MEDS: Metoclopramide HCl 10 MG/2 ML VIAL IVP SCH ×3 (05:32→22:23)
[2020-12-10] MEDS: Fentanyl 100 MCG/2 ML VIAL SLOW IVP PRN ×5 (05:32→22:14)
[2020-12-10 06:30] LABS: #Lymphocytes 1.5 thou/uL (1.20-3.40); #Monocytes 1.5 thou/uL (0.11-0.59); #Neutrophils 10.9 thou/uL (1.40-6.50); %Basophils 0.2 % (0.0-1.0); %Eosinophils 0.3 % (0.0-10.0); %Lymphocytes 10.5 % (21.0-51.0); Hemoglobin 10.4 g/dL (12.0-16.0); Mean Corpuscular HGB CONC 32.9 g/dL (32.0-36.0); Mean Corpuscular Hemoglobin 27.6 pg (27.0-31.0); Platelet Count 505 thou/uL (130-400); RBC Distribution Width 13.8 % (11.5-14.5); Red Blood Cell (RBC) Count 3.76 mill/uL (4.20-5.40); White Blood Cell (WBC) Count 13.9 thou/uL (4.8-10.8)
[2020-12-10] MEDS: Vancomycin 1 GM in Premix Bag 1 BAG IVPB SCH ×3 (09:57→22:25)
[2020-12-10] MEDS: Nicotine 21 MG PATCH TD SCH (09:57)
[2020-12-10] MEDS: Pantoprazole 40 MG VIAL IVP SCH ×2 (09:57→20:23)
[2020-12-10] MEDS: Polyethylene Glycol 3350 17 GM Packet PO SCH (09:57)
[2020-12-10] MEDS: Saccharomyces boulardii 250 MG CAP PO SCH ×2 (09:58→20:22)
[2020-12-10] MEDS: Senokot S 8.6-50 MG TAB PO SCH ×2 (09:58→20:27)
[2020-12-10] MEDS ORDERED: Fentanyl 100 MCG/2 ML VIAL ONE ×2 (12:26→14:39)
[2020-12-10] MEDS ORDERED: Midazolam HCl 2 mg/2 ml Vial ONE (12:51)
[2020-12-10] MEDS ORDERED: Neomycin-Polymyxin 1 ML AMP ONE (13:06)
[2020-12-10] MEDS ORDERED: PROPOFOL 200 MG/20 ML VIAL ONE (13:09)
[2020-12-10] MEDS ORDERED: Ondansetron PF 4 MG/2 ML Vial ONE (13:09)
[2020-12-10] MEDS ORDERED: Lidocaine 1% PF 5 ML VIAL ONE (13:09)
[2020-12-10] MEDS ORDERED: HYDROmorphone 2 MG/ML VIAL ONE (13:36)
[2020-12-10] MEDS ORDERED: Lidocaine 4% Topical Sol 50 ML BOT TOP PRN (16:36)
[2020-12-10] MEDS: traMADol HCl 50 MG TAB PO PRN (22:21)
[2020-12-11] MEDS: Metoclopramide HCl 10 MG/2 ML VIAL IVP SCH (06:15)
[2020-12-11] MEDS: Piperacillin/Tazobactam 3.375 GM in Sodium Chloride 0.9% 100 ML IVPB SCH ×2 (06:15→15:23)
[2020-12-11 08:11] LABS: #Eosinphils 0.1 thou/uL (0.0-0.7); #Lymphocytes 1.3 thou/uL (1.20-3.40); #Monocytes 1.4 thou/uL (0.11-0.59); #Neutrophils 10.4 thou/uL (1.40-6.50); %Basophils 0.3 % (0.0-1.0); %Eosinophils 0.7 % (0.0-10.0); %Lymphocytes 9.7 % (21.0-51.0); %Monocytes 10.6 % (0.0-10.0); %Neutrophils 78.7 % (42.0-75.0); Hemoglobin 9.3 g/dL (12.0-16.0); Mean Corpuscular HGB CONC 32.9 g/dL (32.0-36.0); Mean Corpuscular Hemoglobin 27.8 pg (27.0-31.0); Mean Corpuscular Volume 84.4 fL (78.0-98.0); Mean Platelet Volume 7.1 fL (7.4-10.4); Platelet Count 421 thou/uL (130-400); RBC Distribution Width 13.8 % (11.5-14.5); Red Blood Cell (RBC) Count 3.35 mill/uL (4.20-5.40); White Blood Cell (WBC) Count 13.2 thou/uL (4.8-10.8)
[2020-12-11] MEDS: Pantoprazole 40 MG VIAL IVP SCH ×2 (08:32→21:04)
[2020-12-11] MEDS: Fentanyl 100 MCG/2 ML VIAL SLOW IVP PRN ×5 (08:33→23:02)
[2020-12-11] MEDS: Saccharomyces boulardii 250 MG CAP PO SCH ×2 (08:34→21:04)
[2020-12-11] MEDS: Senokot S 8.6-50 MG TAB PO SCH ×2 (08:34→21:04)
[2020-12-11] MEDS: Polyethylene Glycol 3350 17 GM Packet PO SCH (08:34)
[2020-12-11 08:39] LABS: Vancomycin, Trough 71.9 ug/mL
[2020-12-11] MEDS: Vancomycin 1 GM in Premix Bag 1 BAG IVPB SCH (08:51)
[2020-12-11] MEDS: traMADol HCl 50 MG TAB PO PRN ×2 (11:03→18:37)
[2020-12-11] MEDS ORDERED: Metoclopramide HCl 10 MG TAB PO PRN (11:35)
[2020-12-11] MEDS: Ondansetron PF 4 MG/2 ML Vial IVP PRN ×2 (12:47→20:34)
[2020-12-11] MEDS: Nicotine 21 MG PATCH TD SCH (14:27)
[2020-12-11 20:29] LABS: Vancomycin, Random 49.5 ug/mL (See Comment)
[2020-12-11] MEDS ORDERED: Vancomycin 1 GM in Premix Bag 1 BAG IVPB SCH (21:00)
[2020-12-11] MEDS: Acetaminophen 325 MG TAB PO PRN (21:04)
[2020-12-11] MEDS: Ondansetron ODT 4 MG TAB PO PRN (23:24)
[2020-12-12] MEDS: Fentanyl 100 MCG/2 ML VIAL SLOW IVP PRN ×5 (02:03→12:12)
[2020-12-12] MEDS: Ondansetron PF 4 MG/2 ML Vial IVP PRN ×2 (04:01→12:09)
[2020-12-12] MEDS: Ondansetron ODT 4 MG TAB PO PRN (06:10)
[2020-12-12 06:22] LABS: #Eosinphils 0.2 thou/uL (0.0-0.7); #Lymphocytes 1.1 thou/uL (1.20-3.40); #Monocytes 1.2 thou/uL (0.11-0.59); #Neutrophils 8.4 thou/uL (1.40-6.50); %Basophils 0.2 % (0.0-1.0); %Eosinophils 1.9 % (0.0-10.0); %Lymphocytes 9.9 % (21.0-51.0); %Monocytes 10.8 % (0.0-10.0); %Neutrophils 77.4 % (42.0-75.0); Hemoglobin 8.7 g/dL (12.0-16.0); Mean Corpuscular Hemoglobin 28.7 pg (27.0-31.0); Mean Corpuscular Volume 84.4 fL (78.0-98.0); Mean Platelet Volume 7.2 fL (7.4-10.4); Platelet Count 376 thou/uL (130-400); RBC Distribution Width 13.6 % (11.5-14.5); Red Blood Cell (RBC) Count 3.02 mill/uL (4.20-5.40); White Blood Cell (WBC) Count 10.9 thou/uL (4.8-10.8)
[2020-12-12 06:45] LABS: Anion Gap 11 mmol/L (10-20); BUN (Urea Nitrogen) 18 mg/dL (7.0-18.7); Calc. Creatinine Clearance 27 mL/min (70-130); Carbon Dioxide 29 mmol/L (22-29); Chloride 99 mmol/L (98-107); Glucose 101 mg/dL (70-105); Potassium 3.4 mmol/L (3.5-5.1); Sodium 136 mmol/L (136-145)
[2020-12-12] MEDS ORDERED: Metoclopramide HCl 10 MG/2 ML VIAL IVP PRN ×2 (07:33→08:01)
[2020-12-12] MEDS: Pantoprazole 40 MG VIAL IVP SCH ×2 (07:40→20:45)
[2020-12-12] MEDS: Senokot S 8.6-50 MG TAB PO SCH ×2 (07:41→20:45)
[2020-12-12] MEDS: Polyethylene Glycol 3350 17 GM Packet PO SCH (07:41)
[2020-12-12 08:40] LABS: Anion Gap 13 mmol/L (10-20); BUN (Urea Nitrogen) 16 mg/dL (7.0-18.7); Calc. Creatinine Clearance 27 mL/min (70-130); Carbon Dioxide 28 mmol/L (22-29); Chloride 99 mmol/L (98-107); Glucose 108 mg/dL (70-105); Potassium 3.1 mmol/L (3.5-5.1); Sodium 137 mmol/L (136-145)
[2020-12-12] MEDS: Saccharomyces boulardii 250 MG CAP PO SCH ×2 (09:27→20:45)
[2020-12-12] MEDS: Nicotine 21 MG PATCH TD SCH (09:27)
[2020-12-12] MEDS: Potassium Chloride 20 MEQ in Premix Bag 1 BAG IVPB SCH ×3 (12:17→16:27)
[2020-12-12 14:01] LABS: Albumin 2.8 g/dL (3.5-5.0)
[2020-12-12] MEDS: Fentanyl CADD 100 ML IVPB SCH (15:12)
[2020-12-12 17:53] LABS: Bilirubin Negative (Negative); Blood, Urine Negative (Negative); Clarity Clear (Clear); Glucose, Urine (Dipstick) Normal (Negative); Ketone, Urine Negative (Negative); Leukocyte 75 Leu/uL (Negative); Nitrite Negative (Negative); Protein, Urine (Dipstick) Negative (Neg-Trace); RBC/HPF 0-3 HPF (0-3); Specific Gravity, Urine 1.003 (1.002-1.036); Urobilinogen Normal mg/dL (Less than 2); WBC/HPF 0-3 HPF (0-3)
[2020-12-12 18:01] LABS: Bacteria/HPF 1+ HPF (None Seen); Urine Culture Reflex No No
[2020-12-12 18:11] LABS: Sodium, Urine Less than 20 mmol/L (Not Available); Urea Nitrogen, Random Urine 75 mg/dl
[2020-12-12] MEDS: Sodium Chloride 0.9% 1,000 ML IV SCH ×2 (19:25)
[2020-12-12 21:19] LABS: Vancomycin, Random 33.9 ug/mL (See Comment)
[2020-12-13] MEDS: Ondansetron PF 4 MG/2 ML Vial IVP PRN ×2 (00:05→22:00)
[2020-12-13] MEDS: Sodium Chloride 0.9% 1,000 ML IV SCH ×2 (02:40→21:05)
[2020-12-13 06:05] LABS: #Eosinphils 0.1 thou/uL (0.0-0.7); #Lymphocytes 0.9 thou/uL (1.20-3.40); #Monocytes 0.9 thou/uL (0.11-0.59); #Neutrophils 6.9 thou/uL (1.40-6.50); %Basophils 0.2 % (0.0-1.0); %Eosinophils 1.1 % (0.0-10.0); %Monocytes 9.9 % (0.0-10.0); %Neutrophils 78.9 % (42.0-75.0); Hemoglobin 7.7 g/dL (12.0-16.0); Mean Corpuscular HGB CONC 30.6 g/dL (32.0-36.0); Mean Corpuscular Volume 85.1 fL (78.0-98.0); Mean Platelet Volume 7.5 fL (7.4-10.4); Platelet Count 350 thou/uL (130-400); RBC Distribution Width 13.7 % (11.5-14.5); Red Blood Cell (RBC) Count 2.94 mill/uL (4.20-5.40); White Blood Cell (WBC) Count 8.8 thou/uL (4.8-10.8)
[2020-12-13 06:30] LABS: Albumin 2.7 g/dL (3.5-5.0); Anion Gap 12 mmol/L (10-20); BUN (Urea Nitrogen) 15 mg/dL (7.0-18.7); BUN/Creatinine Ratio 3.72; Calc. Creatinine Clearance 28 mL/min (70-130); Calcium 8.2 mg/dL (7.8-10.44); Carbon Dioxide 24 mmol/L (22-29); Chloride 103 mmol/L (98-107); Glucose 109 mg/dL (70-105); Iron 8 ug/dL (50-170); Iron Binding Capacity, Total 144 mcg/dL (265-497); Phosphorus 3.9 mg/dL (2.3-4.7); Potassium 3.2 mmol/L (3.5-5.1); Sodium 136 mmol/L (136-145)
[2020-12-13 07:34] LABS: Vancomycin, Random 26.4 ug/mL (See Comment)
[2020-12-13] MEDS ORDERED: Potassium Chloride 40 MEQ in Premix Bag 1 BAG IVPB SCH (08:45)
[2020-12-13] MEDS: Nicotine 21 MG PATCH TD SCH (10:04)
[2020-12-13] MEDS: Polyethylene Glycol 3350 17 GM Packet PO SCH (10:04)
[2020-12-13] MEDS: Senokot S 8.6-50 MG TAB PO SCH ×2 (10:04→21:06)
[2020-12-13] MEDS: Pantoprazole 40 MG VIAL IVP SCH ×2 (10:05→21:06)
[2020-12-13] MEDS: Saccharomyces boulardii 250 MG CAP PO SCH ×2 (10:05→21:06)
[2020-12-13] MEDS: Acetaminophen 325 MG TAB PO PRN ×2 (11:27→16:55)
[2020-12-13] MEDS: Lactated Ringer's 1,000 ML IV SCH (12:05)
[2020-12-13] MEDS: Ondansetron ODT 4 MG TAB PO PRN (16:55)
[2020-12-13] MEDS: Fentanyl CADD 100 ML IVPB SCH (19:02)
[2020-12-14] MEDS: Acetaminophen 325 MG TAB PO PRN (06:53)
[2020-12-14] MEDS: Lactated Ringer's 1,000 ML IV SCH ×2 (06:54→17:53)
[2020-12-14 07:17] LABS: #Eosinphils 0.2 thou/uL (0.0-0.7); #Lymphocytes 1.4 thou/uL (1.20-3.40); #Monocytes 0.6 thou/uL (0.11-0.59); #Neutrophils 7.6 thou/uL (1.40-6.50); %Basophils 0.2 % (0.0-1.0); %Lymphocytes 14.4 % (21.0-51.0); %Monocytes 6.5 % (0.0-10.0); Mean Corpuscular HGB CONC 32.5 g/dL (32.0-36.0); Mean Corpuscular Hemoglobin 27.7 pg (27.0-31.0); Mean Corpuscular Volume 85.2 fL (78.0-98.0); Mean Platelet Volume 7.7 fL (7.4-10.4); Platelet Count 370 thou/uL (130-400); RBC Distribution Width 13.8 % (11.5-14.5); Red Blood Cell (RBC) Count 2.88 mill/uL (4.20-5.40); White Blood Cell (WBC) Count 9.8 thou/uL (4.8-10.8)
[2020-12-14 07:39] LABS: Albumin 2.7 g/dL (3.5-5.0); Anion Gap 11 mmol/L (10-20); BUN (Urea Nitrogen) 15 mg/dL (7.0-18.7); BUN/Creatinine Ratio 3.99; Calc. Creatinine Clearance 30 mL/min (70-130); Calcium 8.5 mg/dL (7.8-10.44); Carbon Dioxide 26 mmol/L (22-29); Chloride 104 mmol/L (98-107); Glucose 95 mg/dL (70-105); Phosphorus 4.1 mg/dL (2.3-4.7); Potassium 3.7 mmol/L (3.5-5.1); Sodium 137 mmol/L (136-145)
[2020-12-14] MEDS: Nicotine 21 MG PATCH TD SCH ×2 (08:37→14:18)
[2020-12-14] MEDS: Polyethylene Glycol 3350 17 GM Packet PO SCH (08:37)
[2020-12-14] MEDS: Senokot S 8.6-50 MG TAB PO SCH ×2 (08:37→21:39)
[2020-12-14] MEDS: Saccharomyces boulardii 250 MG CAP PO SCH ×2 (09:54→21:35)
[2020-12-14] MEDS: Pantoprazole 40 MG VIAL IVP SCH ×2 (09:55→21:35)
[2020-12-14] MEDS ORDERED: DAPTOmycin 500 MG VIAL SLOW IVP SCH (14:00)
[2020-12-14] MEDS: DAPTOmycin 500 MG in Sodium Chloride 0.9% 10 ML SLOW IVP SCH (16:27)
[2020-12-14 17:00] LABS: Vancomycin, Random 15.2 ug/mL (See Comment)
[2020-12-14] MEDS: Ferrous Sulfate 325 MG TAB PO SCH (17:43)
[2020-12-14] MEDS: Fentanyl CADD 100 ML IVPB SCH (17:44)
[2020-12-14] MEDS: Ondansetron ODT 4 MG TAB PO PRN (17:52)
[2020-12-15] MEDS: Acetaminophen 325 MG TAB PO PRN ×4 (01:06→16:59)
[2020-12-15] MEDS: Lactated Ringer's 1,000 ML IV SCH ×3 (04:00→23:28)
[2020-12-15 04:40] LABS: Albumin 2.6 g/dL (3.5-5.0); Anion Gap 14 mmol/L (10-20); BUN (Urea Nitrogen) 15 mg/dL (7.0-18.7); BUN/Creatinine Ratio 4.45; Calc. Creatinine Clearance 34 mL/min (70-130); Calcium 8.3 mg/dL (7.8-10.44); Carbon Dioxide 23 mmol/L (22-29); Chloride 105 mmol/L (98-107); Glucose 92 mg/dL (70-105); Phosphorus 4.8 mg/dL (2.3-4.7); Potassium 3.7 mmol/L (3.5-5.1); Sodium 138 mmol/L (136-145)
[2020-12-15] MEDS: Nicotine 21 MG PATCH TD SCH (09:13)
[2020-12-15] MEDS: Ferrous Sulfate 325 MG TAB PO SCH ×2 (09:13→17:34)
[2020-12-15] MEDS: Saccharomyces boulardii 250 MG CAP PO SCH ×2 (09:13→21:09)
[2020-12-15] MEDS: Pantoprazole 40 MG VIAL IVP SCH ×2 (09:13→21:09)
[2020-12-15] MEDS: Senokot S 8.6-50 MG TAB PO SCH ×2 (09:21→19:50)
[2020-12-15] MEDS: Polyethylene Glycol 3350 17 GM Packet PO SCH (09:21)
[2020-12-15] MEDS: Fentanyl CADD 100 ML IVPB SCH (12:49)
[2020-12-15] MEDS ORDERED: Iron, Sodium Ferric Gluconate 250 MG in Sodium Chloride 0.9% 250 ML 250 ML IVPB SCH (13:30)
[2020-12-15] MEDS: Ondansetron PF 4 MG/2 ML Vial IVP PRN (16:08)
[2020-12-15 16:55] LABS: SARS-CoV-2 PCR by NAA Not Detected (NotDetected)
[2020-12-15] MEDS: DAPTOmycin 500 MG in Sodium Chloride 0.9% 10 ML SLOW IVP SCH (17:34)
[2020-12-16] MEDS: Acetaminophen 325 MG TAB PO PRN ×4 (00:19→16:34)
[2020-12-16] MEDS: Ondansetron PF 4 MG/2 ML Vial IVP PRN ×2 (01:09→08:01)
[2020-12-16 05:22] LABS: Albumin 2.7 g/dL (3.5-5.0); Anion Gap 12 mmol/L (10-20); BUN (Urea Nitrogen) 13 mg/dL (7.0-18.7); BUN/Creatinine Ratio 4.13; Calc. Creatinine Clearance 36 mL/min (70-130); Calcium 8.7 mg/dL (7.8-10.44); Carbon Dioxide 26 mmol/L (22-29); Chloride 104 mmol/L (98-107); Glucose 98 mg/dL (70-105); Phosphorus 4.4 mg/dL (2.3-4.7); Potassium 3.7 mmol/L (3.5-5.1); Sodium 138 mmol/L (136-145)
[2020-12-16] MEDS: Pantoprazole 40 MG VIAL IVP SCH (08:00)
[2020-12-16] MEDS: Nicotine 21 MG PATCH TD SCH (08:01)
[2020-12-16] MEDS: Senokot S 8.6-50 MG TAB PO SCH ×2 (08:01→21:33)
[2020-12-16] MEDS: Ferrous Sulfate 325 MG TAB PO SCH ×2 (08:01→16:04)
[2020-12-16] MEDS: Polyethylene Glycol 3350 17 GM Packet PO SCH (08:01)
[2020-12-16] MEDS: Saccharomyces boulardii 250 MG CAP PO SCH ×2 (08:01→21:33)
[2020-12-16] MEDS: Iron, Sodium Ferric Gluconate 250 MG in Sodium Chloride 0.9% 250 ML 250 ML IVPB SCH (10:28)
[2020-12-16] MEDS: DAPTOmycin 500 MG in Sodium Chloride 0.9% 10 ML SLOW IVP SCH (16:01)
[2020-12-16] MEDS: Fentanyl CADD 100 ML IVPB SCH (16:35)
[2020-12-17] MEDS: Ondansetron PF 4 MG/2 ML Vial IVP PRN (03:49)
[2020-12-17] MEDS: Acetaminophen 325 MG TAB PO PRN (04:12)
[2020-12-17 05:36] LABS: Albumin 2.8 g/dL (3.5-5.0); Anion Gap 13 mmol/L (10-20); BUN (Urea Nitrogen) 13 mg/dL (7.0-18.7); BUN/Creatinine Ratio 3.96; Calc. Creatinine Clearance 35 mL/min (70-130); Calcium 8.7 mg/dL (7.8-10.44); Carbon Dioxide 27 mmol/L (22-29); Chloride 101 mmol/L (98-107); Glucose 97 mg/dL (70-105); Potassium 3.4 mmol/L (3.5-5.1); Sodium 138 mmol/L (136-145)
[2020-12-17] MEDS ORDERED: Potassium Chloride 20 MEQ TAB PO SCH (07:30)
[2020-12-17 08:30] LABS: ALT (SGPT) 9 U/L (8-55); AST (SGOT) 13 U/L (5-34); Albumin 2.8 g/dL (3.5-5.0); Alkaline Phosphatase 72 U/L (40-110); Bilirubin, Direct 0.1 mg/dL (0.1-0.3); Bilirubin, Total 0.2 mg/dL (0.2-1.2); Magnesium 1.6 mg/dL (1.6-2.6); Protein, Total 6.4 g/dL (6.0-8.3)
[2020-12-17] MEDS: Ferrous Sulfate 325 MG TAB PO SCH (09:13)
[2020-12-17] MEDS: Senokot S 8.6-50 MG TAB PO SCH (09:13)
[2020-12-17] MEDS: Nicotine 21 MG PATCH TD SCH (09:14)
[2020-12-17] MEDS: Saccharomyces boulardii 250 MG CAP PO SCH (09:14)
[2020-12-17] MEDS: Polyethylene Glycol 3350 17 GM Packet PO SCH (09:14)
[2020-12-17] MEDS: Iron, Sodium Ferric Gluconate 250 MG in Sodium Chloride 0.9% 250 ML 250 ML IVPB SCH (09:35)
[2020-12-17 13:29] VITALS: BP 134/78; TEMP 98.5
== END 2020-12-17 14:45 | disposition home or self-care (01) | DRG 857 ==
LOC: ERS 09:25 → SURG A 11:06
PROVIDERS: ADMIT Surgery; ATTEND Internal Medicine
PROC: 0JBQ0ZZ Excision of Right Foot Subcutaneous Tissue and Fascia, Open Approach (ICD-10-PCS; principal; 2020-12-10)
PROC: 02HV33Z Insertion of Infusion Device into Superior Vena Cava, Percutaneous Approach (ICD-10-PCS; 2020-12-12)
PROC: B5181ZA Fluoroscopy of Superior Vena Cava using Low Osmolar Contrast, Guidance (ICD-10-PCS; 2020-12-12)
PROC: B548ZZA Ultrasonography of Superior Vena Cava, Guidance (ICD-10-PCS; 2020-12-12)
DX: T81.49XA Infection following a procedure, other surgical site, initial encounter (principal); N17.9 Acute kidney failure, unspecified; K21.9 Gastro-esophageal reflux disease without esophagitis; F17.210 Nicotine dependence, cigarettes, uncomplicated; F31.9 Bipolar disorder, unspecified; Y83.8 Other surgical procedures as the cause of abnormal reaction of the patient, or of later complication, without mention of misadventure at the time of the procedure; Z20.822 Contact with and (suspected) exposure to COVID-19; E87.6 Hypokalemia; D50.9 Iron deficiency anemia, unspecified; Z98.890 Other specified postprocedural states; Z88.1 Allergy status to other antibiotic agents
CPT/HCPCS: 36415; 36569; 74019; 76705; 80048; 80053; 80069; 80202; 81001; 82040; 82550; 82570; 82728; 83540; 83550; 83605; 83735; 84156; 84300; 84540; 84703; 85025; 85652; 86140; 87040; 87070; 87076; 87077; 87186; 87205; 96365; 96367; 96375; C1751; C9113; J0878; J1170; J1644; J2250; J2270; J2405; J2543; J2550; J2704; J2765; J2916; J3010; J3370; J3480; J3490; J7050; J7120; Q0162; U0003; U0005

== ENCOUNTER 2020-12-18 02:11 | Emergency (ER) | payer SELFPAY | END 2020-12-18 02:28 | disposition left against medical advice (07) | LOC: ERS 02:11 | DX: Z53.21 Procedure and treatment not carried out due to patient leaving prior to being seen by health care provider (principal) ==

== ENCOUNTER 2020-12-19 09:12 | Inpatient (IN) | payer SELFPAY ==
[2020-12-19] MEDS ORDERED: Morphine 4 MG/ML VIAL ONE (09:42)
[2020-12-19] MEDS ORDERED: Ondansetron PF 4 MG/2 ML Vial ONE (09:42)
[2020-12-19 09:44] LABS: #Eosinphils 0.2 thou/uL (0.0-0.7); #Lymphocytes 0.6 thou/uL (1.20-3.40); #Monocytes 0.5 thou/uL (0.11-0.59); #Neutrophils 5.8 thou/uL (1.40-6.50); %Basophils 0.3 % (0.0-1.0); %Eosinophils 3.4 % (0.0-10.0); %Lymphocytes 8.8 % (21.0-51.0); %Monocytes 7.2 % (0.0-10.0); %Neutrophils 80.4 % (42.0-75.0); Hemoglobin 9.4 g/dL (12.0-16.0); Mean Corpuscular HGB CONC 32.5 g/dL (32.0-36.0); Mean Corpuscular Hemoglobin 27.3 pg (27.0-31.0); Mean Corpuscular Volume 83.9 fL (78.0-98.0); Mean Platelet Volume 7.5 fL (7.4-10.4); Platelet Count 340 thou/uL (130-400); RBC Distribution Width 14.9 % (11.5-14.5); Red Blood Cell (RBC) Count 3.45 mill/uL (4.20-5.40); White Blood Cell (WBC) Count 7.2 thou/uL (4.8-10.8)
[2020-12-19] MEDS ORDERED: Fentanyl 100 MCG/2 ML VIAL ONE ×2 (09:52→11:53)
[2020-12-19 09:56] LABS: INR-International Normal Ratio 1.2; Prothrombin Time 15.2 sec (12.0-14.7)
[2020-12-19 09:57] LABS: PTT 39.2 sec (22.9-36.1)
[2020-12-19] MEDS ORDERED: Meropenem 2 GM in Sodium Chloride 0.9% 100 ML IVPB SCH (10:00)
[2020-12-19 10:04] LABS: ALT (SGPT) 17 U/L (8-55); AST (SGOT) 22 U/L (5-34); Albumin 2.9 g/dL (3.5-5.0); Alkaline Phosphatase 74 U/L (40-110); Anion Gap 14 mmol/L (10-20); BUN (Urea Nitrogen) 13 mg/dL (7.0-18.7); Bilirubin, Total 0.2 mg/dL (0.2-1.2); Calc. Creatinine Clearance 0 mL/min (70-130); Calcium 7.8 mg/dL (7.8-10.44); Carbon Dioxide 26 mmol/L (22-29); Chloride 96 mmol/L (98-107); Globulin 3.3 g/dL (2.4-3.5); Glucose 111 mg/dL (70-105); Potassium 3.4 mmol/L (3.5-5.1); Protein, Total 6.2 g/dL (6.0-8.3); Sodium 133 mmol/L (136-145)
[2020-12-19 10:11] LABS: BHCG - Serum Negative (NEGATIVE); Pregs Control Background? CLEAR/WHITE (CLR/WHITE); Pregs Control Bar Appear? YES (CONTROL BAR)
[2020-12-19 10:32] LABS: Bilirubin Negative (Negative); Blood, Urine Negative (Negative); Clarity Clear (Clear); Glucose, Urine (Dipstick) Normal (Negative); Ketone, Urine Negative (Negative); Leukocyte Negative Leu/uL (Negative); Nitrite Negative (Negative); Protein, Urine (Dipstick) Negative (Neg-Trace); Specific Gravity, Urine 1.006 (1.002-1.036); Urobilinogen Normal mg/dL (Less than 2)
[2020-12-19] MEDS ORDERED: Vancomycin 1 GM/200 ML BAG ONE (11:53)
[2020-12-19] MEDS ORDERED: Acetaminophen 500 MG TAB ONE (11:59)
[2020-12-19] MEDS ORDERED: Sodium Chloride 0.9% 1,000 ML IV SCH (13:30)
[2020-12-19] MEDS ORDERED: Witch Hazel-Glycerin 1 EACH JAR TOP PRN (13:46)
[2020-12-19] MEDS: Fentanyl 100 MCG/2 ML VIAL SLOW IVP PRN ×4 (14:58→22:52)
[2020-12-19] MEDS: Sodium Chloride 0.9% 1,000 ML IV SCH (15:20)
[2020-12-19] MEDS: Heparin 5,000 UNITS/ML VIAL SC SCH ×2 (15:22→20:26)
[2020-12-19] MEDS: Ondansetron PF 4 MG/2 ML Vial IVP PRN (15:25)
[2020-12-19] MEDS: Acetaminophen 325 MG TAB PO PRN ×2 (15:25→20:30)
[2020-12-19] MEDS: Hydrocortisone/Pramoxine (Proctofoam HC) 10 GM BOX PR SCH ×2 (15:38→20:28)
[2020-12-19] MEDS: Potassium Chloride 10 MEQ in Premix Bag 1 BAG IVPB SCH ×2 (15:39→16:35)
[2020-12-19] MEDS: Pantoprazole 40 MG VIAL IVP SCH (15:43)
[2020-12-19] MEDS: MEROPENEM 1 GM/50 ML 1 GM in Premix Bag 1 BAG IVPB SCH (20:26)
[2020-12-19] MEDS ORDERED: Albuterol Sulfate 1.25 MG/3 ML NEB NEB PRN (22:41)
[2020-12-20] MEDS: Acetaminophen 325 MG TAB PO PRN ×5 (00:15→21:53)
[2020-12-20] MEDS: Sodium Chloride 0.9% 1,000 ML IV SCH ×2 (00:16→06:36)
[2020-12-20] MEDS: Hydrocortisone/Pramoxine (Proctofoam HC) 10 GM BOX PR SCH ×4 (00:16→21:54)
[2020-12-20] MEDS: Fentanyl 100 MCG/2 ML VIAL SLOW IVP PRN ×5 (01:22→10:55)
[2020-12-20] MEDS: Ondansetron PF 4 MG/2 ML Vial IVP PRN ×2 (02:14→09:49)
[2020-12-20] MEDS: Metoclopramide HCl 10 MG/2 ML VIAL IVP PRN (05:53)
[2020-12-20 07:04] LABS: #Eosinphils 0.5 thou/uL (0.0-0.7); #Lymphocytes 0.9 thou/uL (1.20-3.40); #Monocytes 0.5 thou/uL (0.11-0.59); #Neutrophils 4.5 thou/uL (1.40-6.50); %Basophils 0.2 % (0.0-1.0); %Eosinophils 7.4 % (0.0-10.0); %Lymphocytes 14.3 % (21.0-51.0); %Monocytes 7.8 % (0.0-10.0); %Neutrophils 70.3 % (42.0-75.0); Hemoglobin 7.8 g/dL (12.0-16.0); Mean Corpuscular Volume 84.8 fL (78.0-98.0); Mean Platelet Volume 7.3 fL (7.4-10.4); Platelet Count 330 thou/uL (130-400); RBC Distribution Width 14.9 % (11.5-14.5); Red Blood Cell (RBC) Count 2.79 mill/uL (4.20-5.40); White Blood Cell (WBC) Count 6.4 thou/uL (4.8-10.8)
[2020-12-20 07:32] LABS: Anion Gap 14 mmol/L (10-20); BUN (Urea Nitrogen) 12 mg/dL (7.0-18.7); Calc. Creatinine Clearance 52 mL/min (70-130); Calcium 7.5 mg/dL (7.8-10.44); Carbon Dioxide 26 mmol/L (22-29); Chloride 100 mmol/L (98-107); Glucose 103 mg/dL (70-105); Magnesium 1.5 mg/dL (1.6-2.6); Potassium 3.4 mmol/L (3.5-5.1); Sodium 137 mmol/L (136-145)
[2020-12-20] MEDS ORDERED: Magnesium Sulfate 2 GM in Sodium Chloride 0.9% 100 ML IVPB SCH (07:45)
[2020-12-20] MEDS ORDERED: DAPTOmycin 500 MG VIAL SLOW IVP SCH (07:45)
[2020-12-20] MEDS ORDERED: Magnesium 2 GM/50 ML 2 GM in Premix Bag 1 BAG IVPB SCH ×2 (08:15→22:30)
[2020-12-20] MEDS: MEROPENEM 1 GM/50 ML 1 GM in Premix Bag 1 BAG IVPB SCH ×2 (08:45→21:52)
[2020-12-20] MEDS ORDERED: DAPTOmycin 500 MG in Sodium Chloride 0.9% 10 ML IVPB SCH (09:00)
[2020-12-20] MEDS: Heparin 5,000 UNITS/ML VIAL SC SCH ×3 (09:48→21:53)
[2020-12-20] MEDS ORDERED: Meropenem 1 GM in Sodium Chloride 0.9% 100 ML IVPB SCH (10:00)
[2020-12-20] MEDS ORDERED: Lidocaine 4% Topical Sol 50 ML BOT TOP SCH (13:00)
[2020-12-20] MEDS ORDERED: FLU VACC QS2021-22(65YR UP)/PF 240 MCG/0.7 ML SYRINGE IM ONE (13:30)
[2020-12-20] MEDS: Morphine 4 MG/ML VIAL SLOW IVP PRN ×3 (14:08→22:17)
[2020-12-20] MEDS: Pantoprazole 40 MG VIAL IVP SCH (16:20)
[2020-12-20] MEDS: traMADol HCl 50 MG TAB PO PRN ×2 (16:39→23:28)
[2020-12-20] MEDS ORDERED: Furosemide 40 MG/4 ML VIAL SLOW IVP SCH (18:00)
[2020-12-20 19:10] LABS: Troponin I 0.232 ng/mL (< 0.028)
[2020-12-20 21:52] LABS: Troponin I 0.449 ng/mL (< 0.028)
[2020-12-20] MEDS: Nitroglycerin 2% Ointment 1 INCH/1 GM Packet TOP SCH ×2 (21:53→22:17)
[2020-12-20] MEDS ORDERED: Electrolyte Replacement Protocol 1 EACH FS SCH (22:15)
[2020-12-20] MEDS ORDERED: Potassium Chloride 20 MEQ TAB PO SCH (22:30)
[2020-12-20] MEDS ORDERED: Sterile Water 10 ML VIAL IVP SCH (23:45)
[2020-12-21] MEDS: Activase 2 MG VIAL CATH SCH ×3 (00:09→15:20)
[2020-12-21 01:51] LABS: Troponin I 0.503 ng/mL (< 0.028)
[2020-12-21] MEDS ORDERED: Enoxaparin Sodium 100 MG/ML SYRINGE SC SCH (02:15)
[2020-12-21] MEDS: Morphine 4 MG/ML VIAL SLOW IVP PRN ×5 (02:25→21:20)
[2020-12-21 04:09] LABS: ALT (SGPT) 13 U/L (8-55); AST (SGOT) 22 U/L (5-34); Alkaline Phosphatase 75 U/L (40-110); Anion Gap 19 mmol/L (10-20); BUN (Urea Nitrogen) 14 mg/dL (7.0-18.7); Bilirubin, Total 0.3 mg/dL (0.2-1.2); Calc. Creatinine Clearance 57 mL/min (70-130); Calcium 7.7 mg/dL (7.8-10.44); Carbon Dioxide 24 mmol/L (22-29); Chloride 94 mmol/L (98-107); Globulin 3.5 g/dL (2.4-3.5); Glucose 109 mg/dL (70-105); Magnesium 2.2 mg/dL (1.6-2.6); Potassium 3.8 mmol/L (3.5-5.1); Protein, Total 6.5 g/dL (6.0-8.3); Sodium 133 mmol/L (136-145)
[2020-12-21] MEDS: Ondansetron PF 4 MG/2 ML Vial IVP PRN (05:05)
[2020-12-21] MEDS: Nitroglycerin 2% Ointment 1 INCH/1 GM Packet TOP SCH ×3 (06:10→21:24)
[2020-12-21] MEDS: traMADol HCl 50 MG TAB PO PRN (06:31)
[2020-12-21] MEDS: Acetaminophen 325 MG TAB PO PRN (06:32)
[2020-12-21] MEDS: MEROPENEM 1 GM/50 ML 1 GM in Premix Bag 1 BAG IVPB SCH ×2 (08:49→20:22)
[2020-12-21] MEDS: Heparin 5,000 UNITS/ML VIAL SC SCH ×3 (08:50→20:25)
[2020-12-21] MEDS: Hydrocortisone/Pramoxine (Proctofoam HC) 10 GM BOX PR SCH ×3 (08:52→20:24)
[2020-12-21 14:08] LABS: Amphetamine Not Detected (NotDetected); Barbiturates Screen Not Detected (NotDetected); Benzodiazepine Screen Not Detected (NotDetected); Cocaine Metabolite Screen Not Detected (NotDetected); Methadone Not Detected (NotDetected); Methamphetamine Not Detected (NotDetected); Opiate Screen Detected (NotDetected); Oxycodone Screen Not Detected (NotDetected); Phencyclidine (PCP) Not Detected (NotDetected); THC/Cannabinoid Screen Not Detected (NotDetected); Tricyclic Screen Not Detected (NotDetected)
[2020-12-21 16:49] LABS: SARS-CoV-2 PCR by NAA Not Detected (NotDetected)
[2020-12-21] MEDS: Saccharomyces boulardii 250 MG CAP PO SCH (20:23)
[2020-12-21] MEDS: Carvedilol 6.25 MG TAB PO SCH (20:23)
[2020-12-21] MEDS: Pantoprazole 40 MG VIAL IVP SCH (20:24)
[2020-12-21 20:25] VITALS: BP 122/83
[2020-12-22] MEDS: Morphine 4 MG/ML VIAL SLOW IVP PRN ×5 (01:48→20:30)
[2020-12-22 05:56] LABS: #Eosinphils 0.3 thou/uL (0.0-0.7); #Lymphocytes 1.8 thou/uL (1.20-3.40); #Monocytes 0.6 thou/uL (0.11-0.59); #Neutrophils 4.8 thou/uL (1.40-6.50); %Basophils 0.6 % (0.0-1.0); %Eosinophils 4.6 % (0.0-10.0); %Lymphocytes 23.3 % (21.0-51.0); %Monocytes 7.7 % (0.0-10.0); %Neutrophils 63.9 % (42.0-75.0); Hemoglobin 7.6 g/dL (12.0-16.0); Mean Corpuscular HGB CONC 32.3 g/dL (32.0-36.0); Mean Corpuscular Hemoglobin 27.5 pg (27.0-31.0); Mean Platelet Volume 7.9 fL (7.4-10.4); Platelet Count 346 thou/uL (130-400); RBC Distribution Width 14.7 % (11.5-14.5); Red Blood Cell (RBC) Count 2.75 mill/uL (4.20-5.40); White Blood Cell (WBC) Count 7.6 thou/uL (4.8-10.8)
[2020-12-22 06:12] LABS: Anion Gap 12 mmol/L (10-20); BUN (Urea Nitrogen) 15 mg/dL (7.0-18.7); Calc. Creatinine Clearance 75 mL/min (70-130); Calcium 8.1 mg/dL (7.8-10.44); Carbon Dioxide 32 mmol/L (22-29); Chloride 95 mmol/L (98-107); Glucose 105 mg/dL (70-105); Potassium 3.4 mmol/L (3.5-5.1); Sodium 136 mmol/L (136-145)
[2020-12-22] MEDS ORDERED: Potassium Chloride 20 MEQ TAB PO SCH (07:00)
[2020-12-22] MEDS: Carvedilol 6.25 MG TAB PO SCH ×2 (09:34→20:31)
[2020-12-22] MEDS: Saccharomyces boulardii 250 MG CAP PO SCH ×2 (09:34→20:31)
[2020-12-22] MEDS: MEROPENEM 1 GM/50 ML 1 GM in Premix Bag 1 BAG IVPB SCH (09:35)
[2020-12-22] MEDS: Nitroglycerin 2% Ointment 1 INCH/1 GM Packet TOP SCH ×3 (09:36→20:34)
[2020-12-22] MEDS: Heparin 5,000 UNITS/ML VIAL SC SCH ×3 (09:36→20:34)
[2020-12-22] MEDS: Hydrocortisone/Pramoxine (Proctofoam HC) 10 GM BOX PR SCH ×3 (09:37→20:34)
[2020-12-22] MEDS ORDERED: Iron, Sodium Ferric Gluconate 250 MG in Sodium Chloride 0.9% 250 ML 250 ML IVPB SCH (11:45)
[2020-12-22] MEDS ORDERED: EPOETIN ALFA-EPBX (ESRD) 10,000 UNIT/ML VIAL SC SCH (12:00)
[2020-12-22] MEDS: DAPTOmycin 500 MG in Sodium Chloride 0.9% 10 ML IVPB SCH (12:43)
[2020-12-22] MEDS: Ondansetron PF 4 MG/2 ML Vial IVP PRN (17:59)
[2020-12-22] MEDS: Pantoprazole 40 MG VIAL IVP SCH (20:32)
[2020-12-23] MEDS: Morphine 4 MG/ML VIAL SLOW IVP PRN ×6 (00:18→20:22)
[2020-12-23 03:44] LABS: Hemoglobin 7.6 g/dL (12.0-16.0); Mean Corpuscular HGB CONC 32.5 g/dL (32.0-36.0); Mean Corpuscular Hemoglobin 27.7 pg (27.0-31.0); Mean Corpuscular Volume 85.3 fL (78.0-98.0); Mean Platelet Volume 8.5 fL (7.4-10.4); Platelet Count 346 thou/uL (130-400); RBC Distribution Width 14.8 % (11.5-14.5); Red Blood Cell (RBC) Count 2.74 mill/uL (4.20-5.40); White Blood Cell (WBC) Count 8.9 thou/uL (4.8-10.8)
[2020-12-23 04:08] LABS: ALT (SGPT) 15 U/L (8-55); AST (SGOT) 16 U/L (5-34); Albumin 2.7 g/dL (3.5-5.0); Alkaline Phosphatase 74 U/L (40-110); Anion Gap 13 mmol/L (10-20); BUN (Urea Nitrogen) 18 mg/dL (7.0-18.7); Bilirubin, Total 0.2 mg/dL (0.2-1.2); Calc. Creatinine Clearance 82 mL/min (70-130); Calcium 8.4 mg/dL (7.8-10.44); Carbon Dioxide 31 mmol/L (22-29); Chloride 98 mmol/L (98-107); Glucose 100 mg/dL (70-105); Magnesium 1.7 mg/dL (1.6-2.6); Potassium 4.3 mmol/L (3.5-5.1); Protein, Total 5.7 g/dL (6.0-8.3); Sodium 138 mmol/L (136-145)
[2020-12-23] MEDS: Nitroglycerin 2% Ointment 1 INCH/1 GM Packet TOP SCH (06:28)
[2020-12-23] MEDS ORDERED: Magnesium 2 GM/50 ML 2 GM in Premix Bag 1 BAG IVPB SCH (07:00)
[2020-12-23] MEDS: Carvedilol 6.25 MG TAB PO SCH ×2 (09:15→20:20)
[2020-12-23] MEDS: Heparin 5,000 UNITS/ML VIAL SC SCH ×3 (09:16→20:21)
[2020-12-23] MEDS: Saccharomyces boulardii 250 MG CAP PO SCH ×2 (09:16→20:21)
[2020-12-23] MEDS: Hydrocortisone/Pramoxine (Proctofoam HC) 10 GM BOX PR SCH (09:17)
[2020-12-23 10:01] VITALS: BMI 32.6
[2020-12-23] MEDS: Iron, Sodium Ferric Gluconate 250 MG in Sodium Chloride 0.9% 250 ML 250 ML IVPB SCH (10:44)
[2020-12-23] MEDS ORDERED: Nitroglycerin 2% Ointment 1 INCH/1 GM Packet TOP PRN (12:31)
[2020-12-23] MEDS ORDERED: Hydrocortisone/Pramoxine (Proctofoam HC) 10 GM BOX PR PRN (12:32)
[2020-12-23] MEDS ORDERED: Pantoprazole 40 MG GRANULES PACKET PO SCH (21:00)
[2020-12-23] MEDS ORDERED: Sterile Water 10 ML VIAL IVP SCH (22:00)
[2020-12-23] MEDS ORDERED: Activase 2 MG VIAL CATH SCH (22:00)
[2020-12-23] MEDS: Ondansetron PF 4 MG/2 ML Vial IVP PRN (22:09)
[2020-12-24] MEDS: Morphine 4 MG/ML VIAL SLOW IVP PRN ×5 (00:13→16:12)
[2020-12-24] MEDS: traMADol HCl 50 MG TAB PO PRN (02:15)
[2020-12-24] MEDS: Metoclopramide HCl 10 MG/2 ML VIAL IVP PRN (02:15)
[2020-12-24 04:45] LABS: Hemoglobin 7.7 g/dL (12.0-16.0); Platelet Count 372 thou/uL (130-400)
[2020-12-24 05:02] LABS: Anion Gap 14 mmol/L (10-20); BUN (Urea Nitrogen) 18 mg/dL (7.0-18.7); Calc. Creatinine Clearance 85 mL/min (70-130); Calcium 8.2 mg/dL (7.8-10.44); Carbon Dioxide 31 mmol/L (22-29); Chloride 96 mmol/L (98-107); Glucose 122 mg/dL (70-105); Potassium 3.8 mmol/L (3.5-5.1); Sodium 137 mmol/L (136-145)
[2020-12-24 05:45] VITALS: TEMP 97.6
[2020-12-24] MEDS: Heparin 5,000 UNITS/ML VIAL SC SCH ×2 (08:41→15:03)
[2020-12-24] MEDS: Saccharomyces boulardii 250 MG CAP PO SCH (08:42)
[2020-12-24] MEDS: Carvedilol 6.25 MG TAB PO SCH (08:42)
[2020-12-24] MEDS: Iron, Sodium Ferric Gluconate 250 MG in Sodium Chloride 0.9% 250 ML 250 ML IVPB SCH (10:55)
[2020-12-24] MEDS: DAPTOmycin 500 MG in Sodium Chloride 0.9% 10 ML IVPB SCH (16:12)
== END 2020-12-24 16:30 | disposition home or self-care (01) | DRG 871 ==
LOC: ERS 09:12 → T4-B 11:58 → IMCU/EMU 12-20 19:54
PROVIDERS: ADMIT Family Medicine; ATTEND Family Medicine
DX: A41.9 Sepsis, unspecified organism (principal); I50.23 Acute on chronic systolic (congestive) heart failure; J96.01 Acute respiratory failure with hypoxia; J18.9 Pneumonia, unspecified organism; N17.9 Acute kidney failure, unspecified; I42.9 Cardiomyopathy, unspecified; T81.49XA Infection following a procedure, other surgical site, initial encounter; E87.1 Hypo-osmolality and hyponatremia; Z20.822 Contact with and (suspected) exposure to COVID-19; D50.9 Iron deficiency anemia, unspecified; F15.10 Other stimulant abuse, uncomplicated; T36.8X5A Adverse effect of other systemic antibiotics, initial encounter; E87.6 Hypokalemia; B95.62 Methicillin resistant Staphylococcus aureus infection as the cause of diseases classified elsewhere; I25.10 Atherosclerotic heart disease of native coronary artery without angina pectoris; F31.9 Bipolar disorder, unspecified; F17.210 Nicotine dependence, cigarettes, uncomplicated; K21.9 Gastro-esophageal reflux disease without esophagitis; Y83.8 Other surgical procedures as the cause of abnormal reaction of the patient, or of later complication, without mention of misadventure at the time of the procedure; K64.9 Unspecified hemorrhoids; Z86.16 Personal history of COVID-19; Z87.01 Personal history of pneumonia (recurrent); Z91.041 Radiographic dye allergy status; Z88.1 Allergy status to other antibiotic agents; Z79.899 Other long term (current) drug therapy; Z79.2 Long term (current) use of antibiotics
CPT/HCPCS: 36415; 71045; 74176; 80048; 80053; 80306; 81003; 82550; 82607; 82746; 83605; 83735; 83880; 84484; 84703; 85014; 85018; 85025; 85027; 85049; 85610; 85730; 86140; 87040; 87045; 87046; 87081; 87086; 87324; 87427; 87449; 87633; 93005; 93010; 93306; 94640; 94760; 96365; 96367; 96375; 96376; C9113; J0878; J1644; J1650; J1940; J2185; J2270; J2405; J2765; J2916; J2997; J3010; J3370; J3475; J3480; J3490; J7050; Q5105; U0003; U0005

== ENCOUNTER 2020-12-31 20:24 | Inpatient (IN) | payer SELFPAY ==
[~2020-12-31 20:24] MED LIST: Iopamidol-370 76% 500 ML 1 ML ONE
[2020-12-31] MEDS ORDERED: Morphine 4 MG/ML VIAL ONE (20:47)
[2020-12-31 21:44] LABS: #Eosinphils 0.4 thou/uL (0.0-0.7); #Lymphocytes 1.5 thou/uL (1.20-3.40); #Monocytes 0.7 thou/uL (0.11-0.59); #Neutrophils 9.8 thou/uL (1.40-6.50); %Basophils 0.3 % (0.0-1.0); %Eosinophils 3.6 % (0.0-10.0); %Monocytes 5.3 % (0.0-10.0); %Neutrophils 78.9 % (42.0-75.0); Hemoglobin 8.9 g/dL (12.0-16.0); Mean Corpuscular HGB CONC 31.3 g/dL (32.0-36.0); Mean Corpuscular Volume 86.2 fL (78.0-98.0); Mean Platelet Volume 7.6 fL (7.4-10.4); Platelet Count 387 thou/uL (130-400); RBC Distribution Width 17.9 % (11.5-14.5); White Blood Cell (WBC) Count 12.4 thou/uL (4.8-10.8)
[2020-12-31 21:51] LABS: BHCG - Serum Negative (NEGATIVE); Pregs Control Background? CLEAR/WHITE (CLR/WHITE); Pregs Control Bar Appear? YES (CONTROL BAR)
[2020-12-31 22:38] LABS: Bilirubin Negative (Negative); Blood, Urine Negative (Negative); Clarity Clear (Clear); Glucose, Urine (Dipstick) Normal (Negative); Ketone, Urine Negative (Negative); Leukocyte 75 Leu/uL (Negative); Nitrite Negative (Negative); Protein, Urine (Dipstick) Negative (Neg-Trace); RBC/HPF 0-3 HPF (0-3); Specific Gravity, Urine 1.007 (1.002-1.036); Urobilinogen Normal mg/dL (Less than 2)
[2020-12-31 22:39] LABS: Bacteria/HPF 1+ HPF (None Seen)
[2020-12-31 22:52] LABS: ALT (SGPT) 32 U/L (8-55); AST (SGOT) 32 U/L (5-34); Albumin 2.9 g/dL (3.5-5.0); Alkaline Phosphatase 93 U/L (40-110); Anion Gap 16 mmol/L (10-20); BUN (Urea Nitrogen) 9 mg/dL (7.0-18.7); Bilirubin, Total 0.5 mg/dL (0.2-1.2); Calc. Creatinine Clearance 0 mL/min (70-130); Calcium 8.7 mg/dL (7.8-10.44); Carbon Dioxide 23 mmol/L (22-29); Chloride 103 mmol/L (98-107); Globulin 3.7 g/dL (2.4-3.5); Glucose 125 mg/dL (70-105); Potassium 3.5 mmol/L (3.5-5.1); Protein, Total 6.6 g/dL (6.0-8.3); Sodium 138 mmol/L (136-145)
[2021-01-01] MEDS ORDERED: Morphine 4 MG/ML VIAL ONE (04:39)
[2021-01-01] MEDS: Morphine 4 MG/ML VIAL SLOW IVP PRN ×2 (04:58→08:48)
[2021-01-01 05:01] VITALS: BMI 31.3
[2021-01-01] MEDS ORDERED: Acetaminophen 650 MG Suppository PR PRN (05:32)
[2021-01-01] MEDS ORDERED: Acetaminophen 325 MG TAB PO PRN (05:32)
[2021-01-01] MEDS ORDERED: Ondansetron PF 4 MG/2 ML Vial IVP PRN (05:32)
[2021-01-01] MEDS ORDERED: Ondansetron ODT 4 MG TAB PO PRN (05:32)
[2021-01-01 07:16] LABS: SARS-CoV-2 NAA Rapid Test Not Detected (NotDetected)
[2021-01-01] MEDS ORDERED: DAPTOmycin 500 MG in Sodium Chloride 0.9% 100 ML IVPB SCH (08:00)
[2021-01-01] MEDS: Furosemide 20 MG/2 ML VIAL SLOW IVP SCH ×2 (08:49→10:18)
[2021-01-01] MEDS: Enoxaparin Sodium 40 MG/0.4 ML SYRINGE SC SCH (08:49)
[2021-01-01] MEDS ORDERED: DAPTOmycin 500 MG VIAL SLOW IVP SCH (09:00)
[2021-01-01] MEDS ORDERED: Acetaminophen 500 MG TAB PO PRN (10:08)
[2021-01-01] MEDS ORDERED: DAPTOmycin 500 MG VIAL IVPB SCH (10:15)
[2021-01-01] MEDS ORDERED: Saccharomyces boulardii 250 MG CAP PO SCH (10:30)
[2021-01-01] MEDS ORDERED: Carvedilol 3.125 MG TAB PO SCH (10:30)
[2021-01-01] MEDS ORDERED: Lisinopril 5 MG TAB PO SCH (10:30)
[2021-01-01 10:39] LABS: #Eosinphils 0.4 thou/uL (0.0-0.7); #Lymphocytes 1.8 thou/uL (1.20-3.40); #Monocytes 0.8 thou/uL (0.11-0.59); #Neutrophils 9.4 thou/uL (1.40-6.50); %Basophils 0.2 % (0.0-1.0); %Eosinophils 3.5 % (0.0-10.0); %Lymphocytes 14.3 % (21.0-51.0); %Monocytes 6.7 % (0.0-10.0); %Neutrophils 75.4 % (42.0-75.0); Hemoglobin 9.8 g/dL (12.0-16.0); Mean Corpuscular HGB CONC 31.6 g/dL (32.0-36.0); Mean Corpuscular Hemoglobin 27.2 pg (27.0-31.0); Mean Corpuscular Volume 86.2 fL (78.0-98.0); Mean Platelet Volume 7.5 fL (7.4-10.4); Platelet Count 431 thou/uL (130-400); RBC Distribution Width 17.8 % (11.5-14.5); Red Blood Cell (RBC) Count 3.59 mill/uL (4.20-5.40); White Blood Cell (WBC) Count 12.4 thou/uL (4.8-10.8)
[2021-01-01 10:57] LABS: Anion Gap 16 mmol/L (10-20); BUN (Urea Nitrogen) 10 mg/dL (7.0-18.7); Calc. Creatinine Clearance 126 mL/min (70-130); Calcium 8.8 mg/dL (7.8-10.44); Carbon Dioxide 26 mmol/L (22-29); Chloride 100 mmol/L (98-107); Glucose 105 mg/dL (70-105); Potassium 4.3 mmol/L (3.5-5.1); Sodium 138 mmol/L (136-145)
[2021-01-01 12:50] LABS: Amphetamine Not Detected (NotDetected); Barbiturates Screen Not Detected (NotDetected); Benzodiazepine Screen Not Detected (NotDetected); Cocaine Metabolite Screen Not Detected (NotDetected); Methadone Not Detected (NotDetected); Methamphetamine Not Detected (NotDetected); Opiate Screen Detected (NotDetected); Oxycodone Screen Not Detected (NotDetected); Phencyclidine (PCP) Not Detected (NotDetected); THC/Cannabinoid Screen Not Detected (NotDetected); Tricyclic Screen Not Detected (NotDetected)
[2021-01-01] MEDS ORDERED: FLU VACC QS2021-22(6MOS UP)/PF 60 MCG/0.5 ML SYRINGE IM ONE (14:00)
[2021-01-01] MEDS: HYDROcodone/Acetaminophen 10/325 mg Tablet PO PRN (18:13)
[2021-01-01 18:49] LABS: HIV (1/2) Antibody/Antigen Non-Reactive (NonReactive); HIV 1/2 INDEX 0.25 S/CO (<1.00)
[2021-01-01] MEDS: Linezolid 600 MG in Premix Bag 1 BAG IVPB SCH (20:21)
[2021-01-01] MEDS: Saccharomyces boulardii 250 MG CAP PO SCH (20:22)
[2021-01-01] MEDS: Carvedilol 3.125 MG TAB PO SCH (20:22)
[2021-01-01] MEDS: HYDROcodone/Acetaminophen 5/325 mg Tablet PO PRN (22:28)
[2021-01-02] MEDS: HYDROcodone/Acetaminophen 10/325 mg Tablet PO PRN ×2 (07:36→19:13)
[2021-01-02 08:32] LABS: #Basophils 0.1 thou/uL (0.0-0.2); #Eosinphils 0.7 thou/uL (0.0-0.7); #Lymphocytes 1.6 thou/uL (1.20-3.40); #Monocytes 0.6 thou/uL (0.11-0.59); #Neutrophils 8.8 thou/uL (1.40-6.50); %Basophils 0.6 % (0.0-1.0); %Eosinophils 5.6 % (0.0-10.0); %Lymphocytes 13.4 % (21.0-51.0); %Monocytes 4.8 % (0.0-10.0); %Neutrophils 75.6 % (42.0-75.0); Hemoglobin 10.1 g/dL (12.0-16.0); Mean Corpuscular HGB CONC 30.9 g/dL (32.0-36.0); Mean Corpuscular Hemoglobin 26.7 pg (27.0-31.0); Mean Corpuscular Volume 86.4 fL (78.0-98.0); Mean Platelet Volume 7.5 fL (7.4-10.4); Platelet Count 435 thou/uL (130-400); RBC Distribution Width 17.7 % (11.5-14.5); Red Blood Cell (RBC) Count 3.77 mill/uL (4.20-5.40); White Blood Cell (WBC) Count 11.7 thou/uL (4.8-10.8)
[2021-01-02 08:52] LABS: Anion Gap 15 mmol/L (10-20); BUN (Urea Nitrogen) 13 mg/dL (7.0-18.7); Calc. Creatinine Clearance 130 mL/min (70-130); Calcium 8.9 mg/dL (7.8-10.44); Carbon Dioxide 25 mmol/L (22-29); Chloride 104 mmol/L (98-107); Glucose 108 mg/dL (70-105); Potassium 4.1 mmol/L (3.5-5.1); Sodium 140 mmol/L (136-145)
[2021-01-02] MEDS ORDERED: Lisinopril 5 MG TAB PO SCH (09:00)
[2021-01-02] MEDS: Linezolid 600 MG in Premix Bag 1 BAG IVPB SCH ×2 (09:18→20:30)
[2021-01-02] MEDS: Ferrous Sulfate 325 MG TAB PO SCH ×2 (09:18→16:02)
[2021-01-02] MEDS: Furosemide 20 MG/2 ML VIAL SLOW IVP SCH (09:18)
[2021-01-02] MEDS: Saccharomyces boulardii 250 MG CAP PO SCH ×2 (09:18→20:30)
[2021-01-02] MEDS: Carvedilol 3.125 MG TAB PO SCH ×2 (09:19→20:30)
[2021-01-02] MEDS: Enoxaparin Sodium 40 MG/0.4 ML SYRINGE SC SCH (09:19)
[2021-01-02] MEDS: HYDROcodone/Acetaminophen 5/325 mg Tablet PO PRN ×2 (11:45→14:48)
[2021-01-02] MEDS ORDERED: Polyethylene Glycol 3350 17 GM Packet PO PRN (12:07)
[2021-01-03] MEDS ORDERED: Lisinopril 5 MG TAB PO SCH (08:15)
[2021-01-03] MEDS ORDERED: Lisinopril 10 MG TAB PO SCH (09:00)
[2021-01-03] MEDS: Linezolid 600 MG in Premix Bag 1 BAG IVPB SCH (10:01)
[2021-01-03] MEDS: Furosemide 20 MG/2 ML VIAL SLOW IVP SCH (10:02)
[2021-01-03] MEDS: Carvedilol 3.125 MG TAB PO SCH (10:04)
[2021-01-03] MEDS: Ferrous Sulfate 325 MG TAB PO SCH (10:04)
[2021-01-03] MEDS: Enoxaparin Sodium 40 MG/0.4 ML SYRINGE SC SCH (10:05)
[2021-01-03] MEDS: Saccharomyces boulardii 250 MG CAP PO SCH (10:06)
[2021-01-03 14:39] VITALS: BP 156/78; TEMP 98.3
[2021-01-03 16:08] LABS: ANA Symphony (Qualitative) Negative (Negative); ANA Symphony (Quantitative) 0.3 Ratio (< 0.7 Negative); dsDNA IgG Antibody 0.8 IU/mL (<10 Negative)
== END 2021-01-03 14:02 | disposition home or self-care (01) | DRG 196 ==
LOC: ERS 20:24 → ERHOLD 01-01 01:26 → OBSVTOIN 01-01 05:30 → T4-B 01-01 05:45 → 2NO 01-01 13:58
PROVIDERS: ADMIT Student in an Organized Health Care Education/Training Program; ATTEND Internal Medicine
DX: J82.81 Chronic eosinophilic pneumonia (principal); I50.23 Acute on chronic systolic (congestive) heart failure; N39.0 Urinary tract infection, site not specified; N17.9 Acute kidney failure, unspecified; I42.9 Cardiomyopathy, unspecified; F41.9 Anxiety disorder, unspecified; Z20.822 Contact with and (suspected) exposure to COVID-19; F31.9 Bipolar disorder, unspecified; Z88.1 Allergy status to other antibiotic agents; Z88.8 Allergy status to other drugs, medicaments and biological substances; Z79.899 Other long term (current) drug therapy; Z87.891 Personal history of nicotine dependence
CPT/HCPCS: 71045; 74177; 80048; 80053; 80306; 81003; 81015; 83605; 83880; 84145; 84484; 84703; 85025; 86038; 86225; 87040; 87077; 87086; 87186; 87389; 93005; J0878; J1642; J1650; J1940; J1956; J2020; J2270; J3490; Q0162; Q9967; U0002

== ENCOUNTER 2021-01-28 01:44 | Inpatient (IN) | payer SELFPAY ==
[2021-01-28] MEDS ORDERED: Morphine 4 MG/ML VIAL ONE (02:36)
[2021-01-28 02:56] LABS: #Eosinphils 0.1 thou/uL (0.0-0.7); #Lymphocytes 1.8 thou/uL (1.20-3.40); #Monocytes 0.8 thou/uL (0.11-0.59); %Basophils 0.1 % (0.0-1.0); %Eosinophils 0.5 % (0.0-10.0); %Lymphocytes 15.4 % (21.0-51.0); %Monocytes 7.1 % (0.0-10.0); %Neutrophils 76.9 % (42.0-75.0); Hemoglobin 11.9 g/dL (12.0-16.0); Mean Corpuscular Hemoglobin 27.9 pg (27.0-31.0); Mean Corpuscular Volume 84.7 fL (78.0-98.0); Mean Platelet Volume 7.5 fL (7.4-10.4); Platelet Count 339 thou/uL (130-400); RBC Distribution Width 17.5 % (11.5-14.5); Red Blood Cell (RBC) Count 4.25 mill/uL (4.20-5.40); White Blood Cell (WBC) Count 11.7 thou/uL (4.8-10.8)
[2021-01-28 03:13] LABS: ALT (SGPT) 9 U/L (8-55); AST (SGOT) 9 U/L (5-34); Albumin 3.7 g/dL (3.5-5.0); Alkaline Phosphatase 111 U/L (40-110); Anion Gap 14 mmol/L (10-20); BUN (Urea Nitrogen) 8 mg/dL (7.0-18.7); Bilirubin, Total 0.4 mg/dL (0.2-1.2); CRP (Inflammatory) 23.63 mg/dL (= or < 0.5); Calc. Creatinine Clearance 0 mL/min (70-130); Calcium 9.3 mg/dL (7.8-10.44); Carbon Dioxide 23 mmol/L (22-29); Chloride 101 mmol/L (98-107); Globulin 3.1 g/dL (2.4-3.5); Glucose 112 mg/dL (70-105); Potassium 3.7 mmol/L (3.5-5.1); Protein, Total 6.8 g/dL (6.0-8.3); Sodium 134 mmol/L (136-145)
[2021-01-28] MEDS ORDERED: Ondansetron PF 4 MG/2 ML Vial IVP PRN (06:15)
[2021-01-28] MEDS ORDERED: Acetaminophen 325 MG TAB PO PRN (06:15)
[2021-01-28] MEDS ORDERED: Ondansetron ODT 4 MG TAB SL PRN (06:15)
[2021-01-28] MEDS ORDERED: Nicotine 14 MG PATCH TD PRN (07:38)
[2021-01-28 08:44] LABS: SARS-CoV-2 NAA Rapid Test Not Detected (NotDetected)
[2021-01-28] MEDS ORDERED: Piperacillin/Tazobactam 3.375 GM in Sodium Chloride 0.9% 100 ML IVPB SCH ×2 (09:00→12:00)
[2021-01-28] MEDS: Sodium Chloride 0.9% 1,000 ML IV SCH ×2 (09:09→14:03)
[2021-01-28 09:22] VITALS: BMI 28.1
[2021-01-28] MEDS: Carvedilol 3.125 MG TAB PO SCH ×2 (09:41→17:57)
[2021-01-28] MEDS: traMADol HCl 50 MG TAB PO PRN ×2 (09:41→20:35)
[2021-01-28] MEDS ORDERED: Vancomycin HCl 1.5 GM in Sodium Chloride 0.9% 250 ML 300 ML IVPB SCH (12:00)
[2021-01-28] MEDS ORDERED: ePHEDrine 50 MG/ML VIAL ONE (15:23)
[2021-01-28] MEDS ORDERED: Midazolam HCl 2 mg/2 ml Vial ONE (15:23)
[2021-01-28] MEDS ORDERED: Fentanyl 100 MCG/2 ML VIAL ONE ×4 (15:23→17:14)
[2021-01-28] MEDS ORDERED: Ketorolac Tromethamine 30 MG/ML VIAL ONE (15:23)
[2021-01-28] MEDS ORDERED: Dexamethasone 20 MG/5 ML VIAL ONE (15:23)
[2021-01-28] MEDS ORDERED: PROPOFOL 200 MG/20 ML VIAL ONE (15:23)
[2021-01-28] MEDS ORDERED: PHENYLEPHRINE-NS 100 MCG/ML 10 ML SYRINGE ONE (15:23)
[2021-01-28] MEDS ORDERED: Lidocaine 1% PF 5 ML VIAL ONE (15:23)
[2021-01-28] MEDS ORDERED: HYDROmorphone 2 MG/ML VIAL ONE (15:23)
[2021-01-28] MEDS ORDERED: Ondansetron PF 4 MG/2 ML Vial ONE (15:23)
[2021-01-28] MEDS ORDERED: HYDROmorphone 2 MG/ML VIAL SLOW IVP PRN (15:56)
[2021-01-28] MEDS ORDERED: Promethazine HCl 25 MG/ML VIAL IVPB PRN (15:56)
[2021-01-28] MEDS ORDERED: Ondansetron HCl/PF 4 MG/2 ML Vial IVP PRN (15:56)
[2021-01-28] MEDS ORDERED: Promethazine HCl 25 MG/ML VIAL IM PRN (15:56)
[2021-01-28] MEDS ORDERED: HYDROmorphone 0.5 MG/0.5 ML SYRINGE ONE (16:54)
[2021-01-28] MEDS ORDERED: Piperacillin/Tazobactam 3.375 GM VIAL ONE (17:17)
[2021-01-28] MEDS ORDERED: Sodium Chloride 0.9% 100 ML ONE (17:17)
[2021-01-28] MEDS: Piperacillin/Tazobactam 3.375 GM in Sodium Chloride 0.9% 100 ML IVPB SCH (17:18)
[2021-01-28 21:46] LABS: Bilirubin Negative (Negative); Blood, Urine 3+ (Negative); Clarity Clear (Clear); Glucose, Urine (Dipstick) Normal (Negative); Ketone, Urine Negative (Negative); Leukocyte 25 Leu/uL (Negative); Nitrite Negative (Negative); Protein, Urine (Dipstick) Negative (Neg-Trace); RBC/HPF Greater than 50 HPF (0-3); Specific Gravity, Urine 1.011 (1.002-1.036); Squamous Epithelial 0-3 HPF (0-3); Urobilinogen Normal mg/dL (Less than 2); pH, Urine 5.5 (5.0-9.0)
[2021-01-28 21:47] LABS: Bacteria/HPF 1+ HPF (None Seen)
[2021-01-28 21:48] LABS: Amphetamine Detected (NotDetected); Barbiturates Screen Not Detected (NotDetected); Benzodiazepine Screen Not Detected (NotDetected); Cocaine Metabolite Screen Not Detected (NotDetected); Methadone Not Detected (NotDetected); Methamphetamine Detected (NotDetected); Opiate Screen Detected (NotDetected); Oxycodone Screen Not Detected (NotDetected); Phencyclidine (PCP) Not Detected (NotDetected); THC/Cannabinoid Screen Detected (NotDetected); Tricyclic Screen Not Detected (NotDetected)
[2021-01-28 21:49] LABS: Urine Culture Reflex Yes Yes
[2021-01-28] MEDS: Linezolid 600 MG in Premix Bag 1 BAG IVPB SCH (21:49)
[2021-01-29] MEDS: Piperacillin/Tazobactam 3.375 GM in Sodium Chloride 0.9% 100 ML IVPB SCH ×2 (01:42→11:08)
[2021-01-29] MEDS: Carvedilol 3.125 MG TAB PO SCH (08:23)
[2021-01-29] MEDS: Linezolid 600 MG in Premix Bag 1 BAG IVPB SCH (08:24)
[2021-01-29] MEDS: traMADol HCl 50 MG TAB PO PRN (10:42)
[2021-01-29 11:36] VITALS: BP 117/77; TEMP 97.9
== END 2021-01-29 14:50 | disposition home or self-care (01) | DRG 496 ==
LOC: ERS 01:44 → SJJU 04:24
PROVIDERS: ADMIT Student in an Organized Health Care Education/Training Program; ATTEND Hospitalist
PROC: 0QPJ04Z Removal of Internal Fixation Device from Right Fibula, Open Approach (ICD-10-PCS; principal; 2021-01-28)
DX: T84.624A Infection and inflammatory reaction due to internal fixation device of right fibula, initial encounter (principal); L03.115 Cellulitis of right lower limb; E87.1 Hypo-osmolality and hyponatremia; Z20.822 Contact with and (suspected) exposure to COVID-19; I50.9 Heart failure, unspecified; F31.9 Bipolar disorder, unspecified; F15.10 Other stimulant abuse, uncomplicated; F12.11 Cannabis abuse, in remission; Y83.1 Surgical operation with implant of artificial internal device as the cause of abnormal reaction of the patient, or of later complication, without mention of misadventure at the time of the procedure; Z88.1 Allergy status to other antibiotic agents; Z87.891 Personal history of nicotine dependence; Z98.890 Other specified postprocedural states
CPT/HCPCS: 76000; 80053; 80306; 81001; 83605; 85025; 85652; 86140; 87070; 87077; 87086; 87186; 87205; 96365; 96366; 96367; 96375; J1100; J1170; J1885; J1956; J2020; J2250; J2270; J2405; J2543; J2704; J3010; J3370; J3490; J7030; J7050; U0002

== ENCOUNTER 2021-08-25 00:43 | Emergency (ER) | payer OTHER, SELFPAY ==
[2021-08-25 01:24] LABS: #Eosinphils 0.1 thou/uL (0.0-0.7); #Lymphocytes 1.8 thou/uL (1.20-3.40); #Monocytes 0.5 thou/uL (0.11-0.59); #Neutrophils 4.8 thou/uL (1.40-6.50); %Basophils 0.6 % (0.0-1.0); %Eosinophils 1.9 % (0.0-10.0); %Lymphocytes 24.5 % (21.0-51.0); %Monocytes 6.7 % (0.0-10.0); %Neutrophils 66.3 % (42.0-75.0); Hemoglobin 12.4 g/dL (12.0-16.0); Mean Corpuscular HGB CONC 33.8 g/dL (32.0-36.0); Mean Corpuscular Hemoglobin 30.9 pg (27.0-31.0); Mean Corpuscular Volume 91.5 fL (78.0-98.0); Mean Platelet Volume 6.4 fL (7.4-10.4); Platelet Count 323 thou/uL (130-400); RBC Distribution Width 12.4 % (11.5-14.5); White Blood Cell (WBC) Count 7.2 thou/uL (4.8-10.8)
[2021-08-25 01:42] LABS: ALT (SGPT) 12 U/L (8-55); AST (SGOT) 13 U/L (5-34); Albumin 3.7 g/dL (3.5-5.0); Alkaline Phosphatase 74 U/L (40-110); Anion Gap 13 mmol/L (10-20); BUN (Urea Nitrogen) 14 mg/dL (7.0-18.7); Bilirubin, Total 0.2 mg/dL (0.2-1.2); Calc. Creatinine Clearance 0 mL/min (70-130); Calcium 9.4 mg/dL (7.8-10.44); Carbon Dioxide 22 mmol/L (22-29); Chloride 105 mmol/L (98-107); Globulin 3.3 g/dL (2.4-3.5); Glucose 86 mg/dL (70-105); Potassium 3.6 mmol/L (3.5-5.1); Sodium 136 mmol/L (136-145)
== END 2021-08-25 02:54 | disposition home or self-care (01) ==
LOC: ERS 00:43
DX: R60.0 Localized edema (principal); I50.9 Heart failure, unspecified; Z87.891 Personal history of nicotine dependence
CPT/HCPCS: 80053; 83605; 85025

== ENCOUNTER 2023-02-18 19:49 | Emergency (ER) | payer SELFPAY, OTHER ==
[~2023-02-18 19:49] MED LIST changes: -Iopamidol-370 76% 500 ML 1 ML ONE; +Iopamidol-370 76% 500 ML MDV (1 ML CHARGE) ONE
[2023-02-18] MEDS ORDERED: Ketorolac Tromethamine 30 MG/ML VIAL ONE (20:49)
[2023-02-18] MEDS ORDERED: Dexamethasone 10 MG/ML VIAL ONE (20:49)
[2023-02-18 20:51] LABS: #Basophils 0.1 thou/uL (0.0-0.2); #Eosinphils 0.3 thou/uL (0.0-0.7); #Monocytes 0.5 thou/uL (0.11-0.59); #Neutrophils 5.3 thou/uL (1.40-6.50); %Basophils 0.6 % (0.0-1.0); %Eosinophils 3.4 % (0.0-10.0); %Lymphocytes 24.9 % (21.0-51.0); %Monocytes 6.1 % (0.0-10.0); %Neutrophils 64.6 % (42.0-75.0); Hematocrit 35.9 % (36.0-47.0); Hemoglobin 11.8 g/dL (12.0-16.0); Mean Corpuscular HGB CONC 32.9 g/dL (32.0-36.0); Mean Corpuscular Hemoglobin 28.7 pg (27.0-31.0); Mean Corpuscular Volume 87.3 fl (78.0-98.0); Mean Platelet Volume 9.3 fL (7.4-10.4); Platelet Count 375 10x3/uL (130-400); RBC Distribution Width 13.6 % (11.5-14.5); Red Blood Cell (RBC) Count 4.11 mill/uL (4.20-5.40); White Blood Cell (WBC) Count 8.3 10x3/uL (4.8-10.8)
[2023-02-18 20:59] LABS: BHCG - Serum Negative (NEGATIVE); Pregs Control Background? CLEAR/WHITE (CLR/WHITE); Pregs Control Bar Appear? YES (CONTROL BAR)
[2023-02-18 21:13] LABS: ALT (SGPT) Less than 7 U/L (8-55); AST (SGOT) 10 U/L (5-34); Alkaline Phosphatase 81 U/L (40-110); Anion Gap 11 mmol/L (10-20); BUN (Urea Nitrogen) 14 mg/dL (7.0-18.7); Bilirubin, Total 0.2 mg/dL (0.2-1.2); Calc. Creatinine Clearance 0 mL/min (70-130); Carbon Dioxide 27 mmol/L (22-29); Chloride 106 mmol/L (98-107); Estimated GFR 103; Globulin 3.1 g/dL (2.4-3.5); Glucose 91 mg/dL (70-105); Potassium 3.7 mmol/L (3.5-5.1); Protein, Total 7.1 g/dL (6.0-8.3); Sodium 140 mmol/L (136-145)
== END 2023-02-18 22:30 | disposition home or self-care (01) ==
LOC: ERS 19:49
DX: K04.7 Periapical abscess without sinus (principal); I50.9 Heart failure, unspecified; Z87.891 Personal history of nicotine dependence
CPT/HCPCS: 70487; 80053; 84703; 85025; 96374; J1100; J1885; Q9967